=== PATIENT | female | born 2000 | race Caucasian/White ===

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

== ENCOUNTER 2020-03-25 20:22 | Emergency (ER) | payer BC, OTHER ==
[2020-03-25] MEDS ORDERED: Sodium Chloride 0.9% 10 ML Syringe FLUSH PRN (20:36)
[2020-03-25] MEDS ORDERED: Ondansetron 4 MG/2 ML SDV IVPUSH ONE ×2 (20:45→21:44)
[2020-03-25] MEDS ORDERED: Sodium Chloride 0.9% 1,000 ML IV STA (20:45)
[2020-03-25] MEDS ORDERED: Alum Hydrox/Mag Hydrox/Simeth 30 ML, Lidocaine 2% 15 ML PO ONE ×2 (20:46)
--- NOTE | 2020-03-25 20:52 | EDM.PDOC ---
ED HPI GENERAL MEDICAL PROBLEM - General Chief Complaint: Gastrointestinal Problem Stated Complaint: VOMITING Time Seen by Provider: 03/25/20 20:35 Source of Information: Reports: Patient, RN Notes Reviewed History Limitations: Reports: No Limitations - History of Present Illness INITIAL COMMENTS - FREE TEXT/NARRATIVE: Patient is a 19-year-old female presenting to the emergency department with complaints of epigastric pain. Symptoms started earlier this afternoon and have progressively worsened throughout the day. She had one episode of vomiting upon arrival to the emergency department. She is had no diarrhea, fever, or chills. Patient states that she ate Chinese toast eggs for breakfast and then pizza rolls and fries for lunch. The pain was present before she ate lunch and she did not notice much of a difference in the pain after eating. She denies any history of esophageal reflux or abdominal surgeries. Upper Abdomen Pain Score (Numeric/FACES): 9 - Related Data Allergies Allergy/AdvReac Type Severity Reaction Status Date / Time No Known Allergies Allergy Verified 04/19/17 08:25 Home Meds: Home Meds Fexofenadine [Thuy] 1 tab PO DAILY 04/19/17 [History] Escitalopram [Lexapro] 30 mg PO DAILY 03/25/20 [History] Melatonin 10 mg PO BEDTIME 03/25/20 [History] Omeprazole 20 mg PO DAILY #30 capsule.dr 03/25/20 [Rx] Ondansetron [Zofran ODT] 4 mg PO Q6H PRN #10 tab.dis 03/25/20 [Rx] Sucralfate 1 gm PO QIDACANDBED 10 Days #40 tablet 03/25/20 [Rx] Past Medical History HEENT History: Reports: Allergic Rhinitis Psychiatric History: Reports: Anxiety, Depression - Past Surgical History HEENT Surgical History: Reports: Oral Surgery Social & Family History - Tobacco Use Tobacco Use Status *Q: Never Tobacco User - Caffeine Use Caffeine Use: Reports: Coffee, Energy Drinks, Soda - Recreational Drug Use Recreational Drug Use: No - Living Situation & Occupation Living situation: Reports: with Family Occupation: Student (10th grade) ED ROS GENERAL - Review of Systems Review Of Systems: See Below Constitutional: Reports: No Symptoms. Denies: Fever, Chills HEENT: Reports: No Symptoms Respiratory: Reports: No Symptoms Cardiovascular: Reports: No Symptoms Endocrine: Reports: No Symptoms GI/Abdominal: Reports: Abdominal Pain, Nausea, Vomiting. Denies: Diarrhea : Reports: No Symptoms Musculoskeletal: Reports: No Symptoms Skin: Reports: No Symptoms Neurological: Reports: No Symptoms Psychiatric: Reports: No Symptoms Hematologic/Lymphatic: Reports: No Symptoms Immunologic: Reports: No Symptoms ED EXAM, GI/ABD - Physical Exam Exam: See Below Exam Limited By: No Limitations General Appearance: Alert, WD/WN, No Apparent Distress Respiratory/Chest: No Respiratory Distress, Lungs Clear, Normal Breath Sounds, No Accessory Muscle Use, Chest Non-Tender Cardiovascular: Normal Peripheral Pulses, Regular Rate, Rhythm, No Edema, No Gallop, No JVD, No Murmur, No Rub GI/Abdominal Exam: Normal Bowel Sounds, Soft, No Organomegaly, No Distention, No Abnormal Bruit, No Mass, Pelvis Stable, Other (Mild tenderness localized to the epigastrium. No tenderness of the right upper quadrant or left upper quadrant. Negative Gates sign.) Neurological: Alert, Oriented, CN II-XII Intact, Normal Cognition, Normal Gait, Normal Reflexes, No Motor/Sensory Deficits Psychiatric: Normal Affect, Normal Mood Skin Exam: Warm, Dry, Intact, Normal Color, No Rash Course - Vital Signs Last Recorded V/S: Last Vital Signs Temp 97.4 F 03/25/20 20:39 Pulse 78 03/25/20 20:39 Resp 20 03/25/20 20:39 BP 111/65 03/25/20 20:39 Pulse Ox 99 03/25/20 20:39 - Orders/Labs/Meds Orders: Active Orders 24 hr Category Date Time Status Peripheral IV Care [RC] . DIRECTED Care 03/25/20 20:36 Active Ondansetron [Zofran] Med 03/25/20 21:44 Once 4 mg IVPUSH ONETIME ONE Sodium Chloride 0.9% [Saline Flush] Med 03/25/20 20:36 Active 10 ml FLUSH ASDIRECTED PRN Peripheral IV Insertion Adult [OM.PC] Stat Oth 03/25/20 20:36 Ordered Medication Orders Sodium Chloride (Saline Flush) 10 ml FLUSH ASDIRECTED PRN PRN Reason: Keep Vein Open Last Admin: 03/25/20 21:02 Dose: 10 ml Documented by: [place] Labs: Laboratory Tests 03/25/20 03/25/20 03/25/20 Range/Units 20:55 20:55 20:55 WBC 12.22 H (3.98-10.04) K/mm3 RBC 4.89 (3.98-5.22) M/mm3 Hgb 13.9 (11.2-15.7) gm/dl Hct 41.1 (34.1-44.9) % MCV 84.0 (79.4-94.8) fl MCH 28.4 (25.6-32.2) pg MCHC 33.8 (32.2-35.5) g/dl RDW Std Deviation 41.8 (36.4-46.3) fL Plt Count 325 (182-369) K/mm3 MPV 8.5 L (9.4-12.3) fl Neut % (Auto) 73.0 H (34.0-71.1) % Lymph % (Auto) 17.8 L (19.3-51.7) % [place] % (Auto) 6.7 (4.7-12.5) % Eos % (Auto) 1.9 (0.7-5.8) Baso % (Auto) 0.4 (0.1-1.2) % Neut # (Auto) 8.93 H (1.56-6.13) K/mm3 Lymph # (Auto) 2.17 (1.18-3.74) K/mm3 [place] # (Auto) 0.82 H (0.24-0.36) K/mm3 Eos # (Auto) 0.23 (0.04-0.36) K/mm3 Baso # (Auto) 0.05 (0.01-0.08) K/mm3 Manual Slide Review Normal smear Sodium 143 (136-145) mEq/L Potassium 3.6 (3.5-5.1) mEq/L Chloride 104 (98-107) mEq/L Carbon Dioxide 25 (21-32) mEq/L Anion Gap 17.6 H (5-15) BUN 14 (7-18) mg/dL Creatinine 0.9 (0.55-1.02) mg/dL Est Cr Clr Drug Dosing 94.12 mL/min Estimated GFR (MDRD) > 60 (>60) mL/min BUN/Creatinine Ratio 15.6 (14-18) Glucose 107 H (74-106) mg/dL Calcium 9.1 (8.5-10.1) mg/dL Total Bilirubin 0.4 (0.2-1.0) mg/dL AST 17 (15-37) U/L ALT 38 (14-59) U/L Alkaline Phosphatase 68 (46-116) U/L C-Reactive Protein 0.2 (<1.0) mg/dL Total Protein 7.8 (6.4-8.2) g/dl Albumin 4.1 (3.4-5.0) g/dl Globulin 3.7 gm/dL Albumin/Globulin Ratio 1.1 (1-2) Lipase 64 L (73-393) U/L HCG, Qual Negative (NEGATIVE) Urine Color (Yellow) Urine Appearance (Clear) Urine pH (5.0-8.0) Ur Specific [place] (1.005-1.030) Urine Protein (Negative) Urine Glucose (UA) (Negative) Urine Ketones (Negative) Urine Occult Blood (Negative) Urine Nitrite (Negative) Urine Bilirubin (Negative) Urine Urobilinogen (0.2-1.0) Ur Leukocyte Esterase (Negative) Urine RBC (0-5) /hpf Urine WBC (0-5) /hpf Ur Squamous Epith Cells (0-5) /hpf Urine Bacteria (FEW) /hpf Urine Mucus (FEW) /hpf 03/25/20 Range/Units 21:00 WBC (3.98-10.04) K/mm3 RBC (3.98-5.22) M/mm3 Hgb (11.2-15.7) gm/dl Hct (34.1-44.9) % MCV (79.4-94.8) fl MCH (25.6-32.2) pg MCHC (32.2-35.5) g/dl RDW Std Deviation (36.4-46.3) fL Plt Count (182-369) K/mm3 MPV (9.4-12.3) fl Neut % (Auto) (34.0-71.1) % Lymph % (Auto) (19.3-51.7) % [place] % (Auto) (4.7-12.5) % Eos % (Auto) (0.7-5.8) Baso % (Auto) (0.1-1.2) % Neut # (Auto) (1.56-6.13) K/mm3 Lymph # (Auto) (1.18-3.74) K/mm3 [place] # (Auto) (0.24-0.36) K/mm3 Eos # (Auto) (0.04-0.36) K/mm3 Baso # (Auto) (0.01-0.08) K/mm3 Manual Slide Review Sodium (136-145) mEq/L Potassium (3.5-5.1) mEq/L Chloride (98-107) mEq/L Carbon Dioxide (21-32) mEq/L Anion Gap (5-15) BUN (7-18) mg/dL Creatinine (0.55-1.02) mg/dL Est Cr Clr Drug Dosing mL/min Estimated GFR (MDRD) (>60) mL/min BUN/Creatinine Ratio (14-18) Glucose (74-106) mg/dL Calcium (8.5-10.1) mg/dL Total Bilirubin (0.2-1.0) mg/dL AST (15-37) U/L ALT (14-59) U/L Alkaline Phosphatase (46-116) U/L C-Reactive Protein (<1.0) mg/dL Total Protein (6.4-8.2) g/dl Albumin (3.4-5.0) g/dl Globulin gm/dL Albumin/Globulin Ratio (1-2) Lipase (73-393) U/L HCG, Qual (NEGATIVE) Urine Color Yellow (Yellow) Urine Appearance Slt cloudy H (Clear) Urine pH 5.5 (5.0-8.0) Ur Specific [place] > or = 1.030 (1.005-1.030) Urine Protein Trace H (Negative) Urine Glucose (UA) Negative (Negative) Urine Ketones Negative (Negative) Urine Occult Blood Negative (Negative) Urine Nitrite Negative (Negative) Urine Bilirubin Negative (Negative) Urine Urobilinogen 0.2 (0.2-1.0) Ur Leukocyte Esterase Negative (Negative) Urine RBC 0-5 (0-5) /hpf Urine WBC 0-5 (0-5) /hpf Ur Squamous Epith Cells 0-5 (0-5) /hpf Urine Bacteria Few (FEW) /hpf Urine Mucus Moderate H (FEW) /hpf Meds: Medications Generic Name Dose Route Start Last Admin Trade Name Freq PRN Reason Stop Dose Admin Sodium Chloride 10 ml 03/25/20 20:36 03/25/20 21:02 Saline Flush FLUSH 10 ml ASDIRECTED PRN Administration Keep Vein Open Discontinued Medications Generic Name Dose Route Start Last Admin Trade Name Brendan PRN Reason Stop Dose Admin Al Hydroxide/Mg Hydroxide 30 0 ml 03/25/20 20:46 03/25/20 21:17 ml/ Lidocaine HCl 15 ml PO 03/25/20 20:47 45 ml ONETIME ONE Administration Famotidine 20 mg 03/25/20 21:19 03/25/20 21:24 Pepcid IVPUSH 03/25/20 21:20 20 mg ONETIME ONE Administration Hydromorphone HCl 0.5 mg 03/25/20 21:21 Dilaudid IVPUSH 03/25/20 21:22 ONETIME ONE Sodium Chloride 1,000 mls @ 999 mls/hr 03/25/20 20:45 03/25/20 21:01 Normal Saline IV 03/25/20 21:45 999 mls/hr NOW STA Administration Ondansetron HCl 4 mg 03/25/20 20:45 03/25/20 21:01 Zofran IVPUSH 03/25/20 20:46 4 mg ONETIME ONE Administration - Re-Assessments/Exams Free Text/Narrative Re-Assessment/Exam: Patient is a 19-year-old female presenting to the emergency department with complaints of epigastric pain throughout the day today. She had one episode of vomiting upon arrival to ER. Denies any diarrhea. On exam, she does have localized tenderness overlying the epigastrium. No right upper quadrant or left upper quadrant tenderness. She took Tylenol for the discomfort which she states did not help. Denies any history of esophageal reflux. I ordered CBC, CMP, CRP, lipase, urinalysis, serum hCG. We will give her 1 L bolus of normal saline as well as Zofran 4 mg IV. 15 minutes after Zofran was given, I have ordered for a GI cocktail to be administered. 03/25/20 21:29 Nurse staff reports that the patient vomitted after taking th GI cocktail. I have ordered Pepcid 20mg IV and Dilaudid 0.5 mg IV. 03/25/20 21:45 Patient is feeling better after the Pepcid but does still feel mildly nauseous. Discussed normal lab results and urinalysis. We will give her another dose of Zofran prior to discharge. I will send a prescription for omeprazole, Carafate, and Zofran. Discussed return precautions. Discharge instructions as documented. Departure - Departure Time of Disposition: 21:46 Disposition: Home, Self-Care 01 Condition: Good Clinical Impression: Vomiting Gastritis Qualifiers: Gastritis type: unspecified gastritis Chronicity: acute Gastritis bleeding: without bleeding Qualified Code(s): K29.00 - Acute gastritis without bleeding - Discharge Information *PRESCRIPTION DRUG MONITORING PROGRAM REVIEWED*: No *COPY OF PRESCRIPTION DRUG MONITORING REPORT IN PATIENT MALIK: No Prescriptions: Omeprazole 20 mg PO DAILY #30 capsule. Sucralfate 1 gm PO QIDACANDBED 10 Days #40 tablet Ondansetron [Zofran ODT] 4 mg PO Q6H PRN #10 tab.dis PRN Reason: Nausea/Vomiting Instructions: Nausea and Vomiting, Adult, [id number], Gastritis, Adult, [id number] Referrals: Cookie Butler PA-C [Primary Care Provider] - Forms: ED Department Discharge Additional Instructions: You were seen in the emergency department today for upper abdominal pain and vomiting. Work-up included blood work and urinalysis. Results of your work-up were found to be normal. As we discussed, given your lab and exam findings, you are likely suffering from gastritis which is inflammation within your stomach. While in the ER, you received IV fluids, Pepcid, and Zofran for nausea. A prescription for omeprazole, Carafate, and Zofran has been sent to [facility]. Take these medications as prescribed. Recommend clear liquid diet for the next 24 hours and then slowly advance as tolerated. Avoid greasy, spicy, or acidic foods for the next few days as this will likely aggravate your symptoms. If you should experience worsening symptoms, inability to keep medications down, or any other new symptoms of concern, recommend return to the emergency department. Follow-up with your primary care provider towards the end of this week. Sepsis Event Note (ED) - Evaluation Sepsis Screening Result: No Definite Risk - Focused Exam Vital Signs: Vital Signs Temp Pulse Resp BP Pulse Ox 03/25/20 20:39 97.4 F 78 20 111/65 99 - My Orders Last 24 Hours: My Active Orders 03/25/20 20:36 Peripheral IV Care [RC] . DIRECTED Sodium Chloride 0.9% [Saline Flush] 10 ml FLUSH ASDIRECTED PRN Peripheral IV Insertion Adult [OM.PC] Stat 03/25/20 21:44 Ondansetron [Zofran] 4 mg IVPUSH ONETIME ONE - Assessment/Plan Last 24 Hours: My Active Orders 03/25/20 20:36 Peripheral IV Care [RC] . DIRECTED Sodium Chloride 0.9% [Saline Flush] 10 ml FLUSH ASDIRECTED PRN Peripheral IV Insertion Adult [OM.PC] Stat 03/25/20 21:44 Ondansetron [Zofran] 4 mg IVPUSH ONETIME ONE
[2020-03-25] MEDS ORDERED: Famotidine 20 MG/2 ML SDV IVPUSH ONE (21:19)
[2020-03-25] MEDS ORDERED: HYDROmorphone 0.5 MG/0.5 ML Syringe IVPUSH ONE (21:21)
== END 2020-03-25 22:06 | disposition home or self-care (01) ==
LOC: SUPCPDRO 20:22 → JD.ED 20:22
DX: K29.00 Acute gastritis without bleeding (principal); R11.10 Vomiting, unspecified; Z79.899 Other long term (current) drug therapy
CPT/HCPCS: 36415; 80053; 81001; 83690; 84703; 85025; 86140; 96374; 96375; 96376; 99284; A9270; J2405; J3490; J7030

== ENCOUNTER 2020-05-22 17:36 | Inpatient (IN) | payer BC ==
[2020-05-22] MEDS ORDERED: Ondansetron 4 MG/2 ML SDV IVPUSH ONE (18:02)
[2020-05-22] MEDS ORDERED: Sodium Chloride 0.9% 1,000 ML IV STA (18:02)
[2020-05-22] MEDS ORDERED: HYDROmorphone 0.5 MG/0.5 ML Syringe IVPUSH ONE ×3 (18:02→22:36)
--- NOTE | 2020-05-22 18:11 | EDM.PDOC ---
ED HPI GENERAL MEDICAL PROBLEM - General Chief Complaint: Abdominal Pain Stated Complaint: ABDOMINAL PAIN Time Seen by Provider: 05/22/20 17:44 Source of Information: Reports: Patient, RN Notes Reviewed History Limitations: Reports: No Limitations - History of Present Illness INITIAL COMMENTS - FREE TEXT/NARRATIVE: Patient is a 19-year-old female presenting to the emergency department with complaints of severe right lower quadrant abdominal pain which began abruptly approximately 1-1/2 hours ago. She states that she was walking to the hardware store when the pain came on suddenly. She describes it as a sharp, stabbing pain. She has had no fever or chills. Does feel nauseous but denies any vomiting or diarrhea. Denies any history of ovarian cysts. She is due for her menstrual period at any time. Denies any possibility of . Middle Abdomen Pain Score (Numeric/FACES): 10 - Related Data Allergies Allergy/AdvReac Type Severity Reaction Status Date / Time No Known Allergies Allergy Verified 05/22/20 17:48 Home Meds: Home Meds Escitalopram [Lexapro] 20 mg PO DAILY 03/25/20 [History] Melatonin 10 mg PO BEDTIME 03/25/20 [History] Cetirizine HCl [Zyrtec] 10 mg PO DAILY 05/22/20 [History] Past Medical History HEENT History: Reports: Allergic Rhinitis Psychiatric History: Reports: Anxiety, Depression - Past Surgical History HEENT Surgical History: Reports: Oral Surgery Social & Family History - Family History Family Medical History: No Pertinent Family History - Tobacco Use Tobacco Use Status *Q: Never Tobacco User - Caffeine Use Caffeine Use: Reports: Energy Drinks - Recreational Drug Use Recreational Drug Use: No - Living Situation & Occupation Living situation: Reports: with Family Occupation: Student (10th grade) ED ROS GENERAL - Review of Systems Review Of Systems: Comprehensive ROS is negative, except as noted in HPI. ED EXAM, GI/ABD - Physical Exam Exam: See Below General Appearance: Alert, Anxious, Mild Distress Respiratory/Chest: No Respiratory Distress, Lungs Clear, Normal Breath Sounds, No Accessory Muscle Use, Chest Non-Tender Cardiovascular: Normal Peripheral Pulses, Regular Rate, Rhythm, No Edema, No Gallop, No JVD, No Murmur, No Rub GI/Abdominal Exam: Normal Bowel Sounds, Soft, No Organomegaly, No Distention, No Abnormal Bruit, No Mass, Pelvis Stable, Tender (RLQ) Neurological: Alert, Oriented, CN II-XII Intact, Normal Cognition, Normal Gait, Normal Reflexes, No Motor/Sensory Deficits Psychiatric: Normal Affect, Normal Mood Skin Exam: Warm, Dry, Intact, Normal Color, No Rash Course - Vital Signs Last Recorded V/S: Last Vital Signs Temp 98.3 F 05/22/20 17:46 Pulse 84 05/22/20 17:46 Resp 20 05/22/20 17:46 BP 105/55 L 05/22/20 17:46 Pulse Ox 98 05/22/20 17:46 - Orders/Labs/Meds Orders: Active Orders 24 hr Category Date Time Status Peripheral IV Care [RC] . DIRECTED Care 05/22/20 18:03 Active Abdomen Pelvis w Cont [CT] Stat Exams 05/22/20 20:50 Taken CORONAVIRUS COVID-19 KOREY [MOLEC] Stat Lab 05/22/20 22:23 Received Ertapenem [INVanz] 1 gm Med 05/22/20 22:18 Active Sodium Chloride 0.9% [Normal Saline] 50 ml IV ONETIME Sodium Chloride 0.9% [Normal Saline] 1,000 ml Med 05/22/20 18:02 Active IV NOW Sodium Chloride 0.9% [Saline Flush] Med 05/22/20 18:03 Active 10 ml FLUSH ASDIRECTED PRN Peripheral IV Insertion Adult [OM.PC] Stat Oth 05/22/20 18:03 Ordered Medication Orders Sodium Chloride (Normal Saline) 1,000 mls @ 150 mls/hr IV NOW STA Stop: 05/23/20 00:41 Last Admin: 05/22/20 18:32 Dose: 150 mls/hr Documented by: SHEELA Ertapenem 1 gm/ Sodium (Chloride) 50 mls @ 100 mls/hr IV ONETIME ONE Stop: 05/22/20 22:47 Last Admin: 05/22/20 22:35 Dose: 100 mls/hr Documented by: BIJAL Sodium Chloride (Sodium Chloride 0.9% 10 Ml Syringe) 10 ml FLUSH ASDIRECTED PRN PRN Reason: Keep Vein Open Last Admin: 05/22/20 21:55 Dose: 10 ml Documented by: Admin: 05/22/20 18:26 Dose: 10 ml Documented by: SHEELA Labs: Laboratory Tests 05/22/20 05/22/20 05/22/20 Range/Units 18:25 18:25 18:25 WBC 18.82 H (3.98-10.04) K/mm3 RBC 4.87 (3.98-5.22) M/mm3 Hgb 13.7 (11.2-15.7) gm/dl Hct 40.7 (34.1-44.9) % MCV 83.6 (79.4-94.8) fl MCH 28.1 (25.6-32.2) pg MCHC 33.7 (32.2-35.5) g/dl RDW Std Deviation 39.8 (36.4-46.3) fL Plt Count 353 (182-369) K/mm3 MPV 8.5 L (9.4-12.3) fl Neut % (Auto) 80.5 H (34.0-71.1) % Lymph % (Auto) 13.2 L (19.3-51.7) % [place] % (Auto) 4.1 L (4.7-12.5) % Eos % (Auto) 1.7 (0.7-5.8) Baso % (Auto) 0.2 (0.1-1.2) % Neut # (Auto) 15.16 H (1.56-6.13) K/mm3 Lymph # (Auto) 2.48 (1.18-3.74) K/mm3 [place] # (Auto) 0.78 H (0.24-0.36) K/mm3 Eos # (Auto) 0.32 (0.04-0.36) K/mm3 Baso # (Auto) 0.03 (0.01-0.08) K/mm3 Manual Slide Review Sodium 142 (136-145) mEq/L Potassium 3.5 (3.5-5.1) mEq/L Chloride 104 (98-107) mEq/L Carbon Dioxide 25 (21-32) mEq/L Anion Gap 16.5 H (5-15) BUN 15 (7-18) mg/dL Creatinine 0.9 (0.55-1.02) mg/dL Est Cr Clr Drug Dosing 94.12 mL/min Estimated GFR (MDRD) > 60 (>60) mL/min BUN/Creatinine Ratio 16.7 (14-18) Glucose 103 (74-106) mg/dL Calcium 9.0 (8.5-10.1) mg/dL Total Bilirubin 0.3 (0.2-1.0) mg/dL AST 17 (15-37) U/L ALT 30 (14-59) U/L Alkaline Phosphatase 67 (46-116) U/L C-Reactive Protein 0.3 (<1.0) mg/dL Total Protein 7.6 (6.4-8.2) g/dl Albumin 3.8 (3.4-5.0) g/dl Globulin 3.8 gm/dL Albumin/Globulin Ratio 1.0 (1-2) HCG, Qual Negative (NEGATIVE) Meds: Medications Generic Name Dose Route Start Last Admin Trade Name Brendan PRN Reason Stop Dose Admin Sodium Chloride 1,000 mls @ 150 mls/hr 05/22/20 18:02 05/22/20 18:32 Normal Saline IV 05/23/20 00:41 150 mls/hr NOW STA Administration Ertapenem 1 gm/ Sodium 50 mls @ 100 mls/hr 05/22/20 22:18 05/22/20 22:35 Chloride IV 05/22/20 22:47 100 mls/hr ONETIME ONE Administration Sodium Chloride 10 ml 05/22/20 18:03 05/22/20 21:55 Sodium Chloride 0.9% 10 Ml Syringe FLUSH 10 ml ASDIRECTED PRN Administration Keep Vein Open Discontinued Medications Generic Name Dose Route Start Last Admin Trade Name Brendan PRN Reason Stop Dose Admin Hydromorphone HCl 0.5 mg 05/22/20 18:02 05/22/20 18:30 Hydromorphone 0.5 Mg/0.5 Ml Syringe IVPUSH 05/22/20 18:03 0.5 mg ONETIME ONE Administration Hydromorphone HCl 0.5 mg 05/22/20 21:09 05/22/20 21:14 Hydromorphone 0.5 Mg/0.5 Ml Syringe IVPUSH 05/22/20 21:10 0.5 mg ONETIME ONE Administration Hydromorphone HCl 0.5 mg 05/22/20 22:36 05/22/20 22:40 Hydromorphone 0.5 Mg/0.5 Ml Syringe IVPUSH 05/22/20 22:37 0.5 mg ONETIME ONE Administration Iopamidol 100 ml 05/22/20 21:55 05/22/20 21:55 Iopamidol 612 Mg/Ml 100 Ml Bottle IVPUSH 05/22/20 21:56 100 ml ONETIME ONE Administration Ondansetron HCl 4 mg 05/22/20 18:02 05/22/20 18:26 Ondansetron 4 Mg/2 Ml Sdv IVPUSH 05/22/20 18:03 4 mg ONETIME ONE Administration - Re-Assessments/Exams Free Text/Narrative Re-Assessment/Exam: Patient is a 19-year-old female presenting to the emergency department with complaints of acute onset of sharp, stabbing, right lower quadrant abdominal pain. She has had nausea with no vomiting or diarrhea. Denies fever chills. On exam, she does exquisitely tender in the right lower quadrant. Given the abruptness of the onset of pain as well as her description of the sharp, stabbing pain, I feel is likely she is suffering from a ruptured ovarian cyst. I have ordered blood work to include CBC, CMP, CRP, and qualitative hCG. We will give her Dilaudid 0.5 mg IV as well as Zofran 4 mg IV. I have ordered a pelvic ultrasound. 05/22/20 20:00 master control technician reported the patient was unable to tolerate transvaginal ultrasound. They did attempt to visualize the organs transabdominally. I will wait for the radiologist report. If adequate imaging was not obtained, I will complete a CT scan of the abdomen and pelvic. 05/22/202049 Results of the transabdominal pelvic ultrasound shows: 1. Uterus and ovaries are not seen. 2. Cystic structure as described above seen within the left adnexa. I have ordered a CT scan of the abdomen pelvis with IV contrast only. 05/22/20 22:16 CT scan of the abdomen pelvis impression as follows: 1. Distended appendix measuring 1 cm with mucosal hyperemia, concerning for mild acute appendicitis in the appropriate clinical setting. 2. 6 cm x 5.4 cm left adnexal cyst. Further evaluation with ultrasound is recommended. 3. Incidental findings as detailed above. Case discussed with the general surgeon on-call, Dr. Gavin. He would like the patient admitted into the hospital. He recommended to give her 1 g of Invanz, LR at 100 mils per hour, Dilaudid 0.5 mg IV every 2 hours, Zofran 4 mg IV every 6 as needed for nausea and NPO. I will write bridge orders. Departure - Departure Time of Disposition: 22:21 Disposition: Refer to Observation Condition: Good Clinical Impression: Appendicitis Qualifiers: Appendicitis type: acute appendicitis Acute appendicitis type: unspecified acute appendicitis type Qualified Code(s): K35.80 - Unspecified acute appendicitis - Discharge Information Sepsis Event Note (ED) - Evaluation Sepsis Screening Result: No Definite Risk - Focused Exam Vital Signs: Vital Signs Temp Pulse Resp BP Pulse Ox 05/22/20 17:46 98.3 F 84 20 105/55 L 98 - My Orders Last 24 Hours: My Active Orders 05/22/20 18:02 Sodium Chloride 0.9% [Normal Saline] 1,000 ml IV NOW 05/22/20 18:03 Peripheral IV Care [RC] . DIRECTED Sodium Chloride 0.9% [Saline Flush] 10 ml FLUSH ASDIRECTED PRN Peripheral IV Insertion Adult [OM.PC] Stat 05/22/20 20:50 Abdomen Pelvis w Cont [CT] Stat 05/22/20 22:18 Ertapenem [INVanz] 1 gm Sodium Chloride 0.9% [Normal Saline] 50 ml IV ONETIME 05/22/20 22:23 CORONAVIRUS COVID-19 KOREY [MOLEC] Stat - Assessment/Plan Last 24 Hours: My Active Orders 05/22/20 18:02 Sodium Chloride 0.9% [Normal Saline] 1,000 ml IV NOW 05/22/20 18:03 Peripheral IV Care [RC] . DIRECTED Sodium Chloride 0.9% [Saline Flush] 10 ml FLUSH ASDIRECTED PRN Peripheral IV Insertion Adult [OM.PC] Stat 05/22/20 20:50 Abdomen Pelvis w Cont [CT] Stat 05/22/20 22:18 Ertapenem [INVanz] 1 gm Sodium Chloride 0.9% [Normal Saline] 50 ml IV ONETIME 05/22/20 22:23 CORONAVIRUS COVID-19 KOREY [MOLEC] Stat
[2020-05-22] MEDS: Sodium Chloride 0.9% 10 ML Syringe FLUSH PRN ×2 (18:26→21:55)
--- NOTE | 2020-05-22 20:39 | US ---
Pelvic ultrasound: Multiple real-time images were attempted transvaginally but due to patient discomfort transabdominal scanning was performed. Uterus as well as ovaries are not seen. There is a cystic structure within the left adnexa measuring 4.4 x 4.6 x 5.3 cm. No free fluid is seen. Impression: 1. Uterus and ovaries are not seen. 2. Cystic structure as described above seen within the left adnexa. Diagnostic code #3
[2020-05-22] MEDS ORDERED: Iopamidol 612 MG/ML 100 ML Bottle IVPUSH ONE (21:55)
[2020-05-22] MEDS ORDERED: Ertapenem 1 GM in Sodium Chloride 0.9% 50 ML IV ONE (22:18)
[2020-05-22] MEDS ORDERED: Ondansetron 4 MG/2 ML SDV IVPUSH PRN (23:46)
[2020-05-23] MEDS: Lactated Ringers 1,000 ML IV SCH ×2 (00:01→10:15)
[2020-05-23] MEDS: HYDROmorphone 0.5 MG/0.5 ML Syringe IVPUSH PRN ×4 (02:17→12:24)
--- NOTE | 2020-05-23 08:31 | CT ---
CT abdomen and pelvis Technique: Multiple axial sections were obtained from above the dome of the diaphragm inferiorly through the pubic symphysis. Intravenous contrast was utilized. No oral contrast has been given. Reconstructed coronal and sagittal images were obtained. Delayed images were also obtained through the bladder. Comparison: Previous limited pelvic ultrasound study performed earlier on the same day (7:41 PM). Findings: Appendix measures somewhat prominent at 1 cm. There is slight enhancement of the wall of the appendix. No significant inflammatory change is seen. Difficult to exclude very early appendicitis depending on the patient's symptoms. Visualized lung bases show nothing acute. Liver shows no focal parenchymal abnormality. Spleen shows no focal abnormality. Adrenal glands show no nodule. Pancreas is within normal limits. Gallbladder contains no calcified gallstones. Kidneys show symmetric contrast enhancement with no hydronephrosis or discrete mass. Abdominal aorta shows no aneurysm. No retroperitoneal adenopathy or mesenteric abnormalities are seen. Left ovarian cyst is seen measuring about 6.0 cm in size. There is free fluid being seen within the pelvis. Right ovary appears normal. Increased stool is noted within the cecum. No bowel wall thickening is otherwise seen. Bone window settings were reviewed which appear within normal limits for the patient's age. Delayed images show contrast within the distal ureters and within the bladder. Impression: 1. Appendix is slightly prominent in size with mild enhancement of the appendiceal wall. No significant surrounding inflammatory change is seen. Difficult to exclude very early appendicitis if patient has correlating symptoms. 2. 6.0 cm cyst within the left ovary. Fluid within the pelvis most likely representing cyst leakage. Diagnostic code #3 I agree with preliminary report from [facility], finalized on 05/22/20, 11:08 PM CDT
--- NOTE | 2020-05-23 10:31 | PCM.PREANE ---
Preanesthetic Assessment - Procedure Proposed Procedure: lap appy - Anesthesia/Transfusion/Family Hx Anesthesia History: No Prior Anesthesia Family History of Anesthesia Reaction: No Transfusion History: No Prior Transfusion(s) - Review of Systems General: Fever (mn) Pulmonary: No Symptoms Cardiovascular: No Symptoms Gastrointestinal: Abdominal Pain (started yesterday at 330 pm- nausea with and no vomit) Neurological: No Symptoms Other: Reports: Depression, Anxiety - Physical Assessment NPO Status Date: 05/22/20 NPO Status Time: 04:30 (ice chips) Vital Signs: Last Vital Signs Temp 98.8 F 05/23/20 07:36 Pulse 114 H 05/23/20 08:27 Resp 16 05/23/20 07:36 BP 99/36 L 05/23/20 07:36 Pulse Ox 95 05/23/20 08:27 Height: 5 ft 6 in Weight: 68.266 kg ASA Class: 2 Mental Status: Alert & Oriented x3 Airway Class: Mallampati = 1 Dentition: Reports: Normal Dentition Thyro-Mental Finger Breadths: 3 Mouth Opening Finger Breadths: 3 ROM/Head Extension: Full Lungs: Clear to Auscultation, Normal Respiratory Effort Cardiovascular: Regular Rate, Regular Rhythm - Lab Values: Laboratory Last Values WBC 18.82 K/mm3 (3.98-10.04) H 05/22/20 18:25 RBC 4.87 M/mm3 (3.98-5.22) 05/22/20 18:25 Hgb 13.7 gm/dl (11.2-15.7) 05/22/20 18:25 Hct 40.7 % (34.1-44.9) 05/22/20 18:25 MCV 83.6 fl (79.4-94.8) 05/22/20 18:25 MCH 28.1 pg (25.6-32.2) 05/22/20 18:25 MCHC 33.7 g/dl (32.2-35.5) 05/22/20 18:25 RDW Std Deviation 39.8 fL (36.4-46.3) 05/22/20 18:25 Plt Count 353 K/mm3 (182-369) 05/22/20 18:25 MPV 8.5 fl (9.4-12.3) L 05/22/20 18:25 Neut % (Auto) 80.5 % (34.0-71.1) H 05/22/20 18:25 Lymph % (Auto) 13.2 % (19.3-51.7) L 05/22/20 18:25 [place] % (Auto) 4.1 % (4.7-12.5) L 05/22/20 18:25 Eos % (Auto) 1.7 (0.7-5.8) 05/22/20 18:25 Baso % (Auto) 0.2 % (0.1-1.2) 05/22/20 18:25 Neut # (Auto) 15.16 K/mm3 (1.56-6.13) H 05/22/20 18:25 Lymph # (Auto) 2.48 K/mm3 (1.18-3.74) 05/22/20 18:25 [place] # (Auto) 0.78 K/mm3 (0.24-0.36) H 05/22/20 18:25 Eos # (Auto) 0.32 K/mm3 (0.04-0.36) 05/22/20 18:25 Baso # (Auto) 0.03 K/mm3 (0.01-0.08) 05/22/20 18:25 Manual Slide Review 05/22/20 18:25 Sodium 142 mEq/L (136-145) 05/22/20 18:25 Potassium 3.5 mEq/L (3.5-5.1) 05/22/20 18:25 Chloride 104 mEq/L (98-107) 05/22/20 18:25 Carbon Dioxide 25 mEq/L (21-32) 05/22/20 18:25 Anion Gap 16.5 (5-15) H 05/22/20 18:25 BUN 15 mg/dL (7-18) 05/22/20 18:25 Creatinine 0.9 mg/dL (0.55-1.02) 05/22/20 18:25 Est Cr Clr Drug Dosing 94.12 mL/min 05/22/20 18:25 Estimated GFR (MDRD) > 60 mL/min (>60) 05/22/20 18:25 BUN/Creatinine Ratio 16.7 (14-18) 05/22/20 18:25 Glucose 103 mg/dL (74-106) 05/22/20 18:25 Calcium 9.0 mg/dL (8.5-10.1) 05/22/20 18:25 Total Bilirubin 0.3 mg/dL (0.2-1.0) 05/22/20 18:25 AST 17 U/L (15-37) 05/22/20 18:25 ALT 30 U/L (14-59) 05/22/20 18:25 Alkaline Phosphatase 67 U/L (46-116) 05/22/20 18:25 C-Reactive Protein 0.3 mg/dL (<1.0) 05/22/20 18:25 Total Protein 7.6 g/dl (6.4-8.2) 05/22/20 18:25 Albumin 3.8 g/dl (3.4-5.0) 05/22/20 18:25 Globulin 3.8 gm/dL 05/22/20 18:25 Albumin/Globulin Ratio 1.0 (1-2) 05/22/20 18:25 HCG, Qual Negative (NEGATIVE) 05/22/20 18:25 SARS-CoV-2 RNA (KOREY) Negative (NEGATIVE) 05/22/20 22:23 - Allergies Allergies/Adverse Reactions: Allergies Allergy/AdvReac Type Severity Reaction Status Date / Time No Known Allergies Allergy Verified 05/22/20 17:48 - Blood Blood Available: No - Acknowledgements Anesthesia Type Planned: General Anesthesia Pt an Appropriate Candidate for the Planned Anesthesia: Yes Alternatives and Risks of Anesthesia Discussed w Pt/Guardian: Yes Pt/Guardian Understands and Agrees with Anesthesia Plan: Yes PreAnesthesia Questionnaire HEENT History: Reports: Allergic Rhinitis Cardiovascular History: Reports: None Respiratory History: Reports: None Musculoskeletal History: Reports: None Psychiatric History: Reports: Anxiety, Depression Endocrine/Metabolic History: Reports: None Oncologic (Cancer) History: Reports: None - Past Surgical History HEENT Surgical History: Reports: Oral Surgery, Other (See Below) Other HEENT Surgeries/Procedures: [place] teeth removed 03/27 - SUBSTANCE USE Tobacco Use Status *Q: Never Tobacco User Tobacco Use Within Last Twelve Months: No Second Hand Smoke Exposure: No Days Per Week of Alcohol Use: 0 Recreational Drug Use History: No - HOME MEDS Home Medications: Home Meds Escitalopram [Lexapro] 20 mg PO BEDTIME 03/25/20 [History] Melatonin 10 mg PO BEDTIME 03/25/20 [History] Cetirizine HCl [Zyrtec] 10 mg PO BEDTIME 05/22/20 [History] - CURRENT (IN HOUSE) MEDS Current Meds: Current Medications Hydromorphone HCl (Hydromorphone 0.5 Mg/0.5 Ml Syringe) 0.5 mg IVPUSH Q2H PRN PRN Reason: Pain Last Admin: 05/23/20 07:45 Dose: 0.5 mg Documented by: Lactated Ringer's (Ringers, Lactated) 1,000 mls @ 100 mls/hr IV ASDIRECTED WERNER Last Admin: 05/23/20 10:15 Dose: 100 mls/hr Documented by: Ondansetron HCl (Ondansetron 4 Mg/2 Ml Sdv) 4 mg IVPUSH Q6H PRN PRN Reason: Nausea Last Admin: 05/23/20 04:34 Dose: 4 mg Documented by: Sodium Chloride (Sodium Chloride 0.9% 10 Ml Syringe) 10 ml FLUSH ASDIRECTED PRN PRN Reason: Keep Vein Open Last Admin: 05/22/20 21:55 Dose: 10 ml Documented by: Discontinued Medications Hydromorphone HCl (Hydromorphone 0.5 Mg/0.5 Ml Syringe) 0.5 mg IVPUSH ONETIME ONE Stop: 05/22/20 18:03 Last Admin: 05/22/20 18:30 Dose: 0.5 mg Documented by: Hydromorphone HCl (Hydromorphone 0.5 Mg/0.5 Ml Syringe) 0.5 mg IVPUSH ONETIME ONE Stop: 05/22/20 21:10 Last Admin: 05/22/20 21:14 Dose: 0.5 mg Documented by: Hydromorphone HCl (Hydromorphone 0.5 Mg/0.5 Ml Syringe) 0.5 mg IVPUSH ONETIME ONE Stop: 05/22/20 22:37 Last Admin: 05/22/20 22:40 Dose: 0.5 mg Documented by: Sodium Chloride (Normal Saline) 1,000 mls @ 150 mls/hr IV NOW STA Stop: 05/23/20 00:41 Last Admin: 05/22/20 18:32 Dose: 150 mls/hr Documented by: Ertapenem 1 gm/ Sodium (Chloride) 50 mls @ 100 mls/hr IV ONETIME ONE Stop: 05/22/20 22:47 Last Admin: 05/22/20 22:35 Dose: 100 mls/hr Documented by: Iopamidol (Iopamidol 612 Mg/Ml 100 Ml Bottle) 100 ml IVPUSH ONETIME ONE Stop: 05/22/20 21:56 Last Admin: 05/22/20 21:55 Dose: 100 ml Documented by: Ondansetron HCl (Ondansetron 4 Mg/2 Ml Sdv) 4 mg IVPUSH ONETIME ONE Stop: 05/22/20 18:03 Last Admin: 05/22/20 18:26 Dose: 4 mg Documented by:
[2020-05-23] MEDS ORDERED: Propofol 200 MG/20 ML SDV ONE (11:31)
[2020-05-23] MEDS ORDERED: Midazolam 1 MG/ML 2 ML SDV ONE (11:32)
[2020-05-23] MEDS ORDERED: Lidocaine 1% 4 ML ONE (11:32)
[2020-05-23] MEDS ORDERED: Succinylcholine/Sod PF 100 MG/5 ML SYRINGE IV ONE (11:32)
[2020-05-23] MEDS ORDERED: fentaNYL 250 MCG/5 ML SDV ONE (11:32)
[2020-05-23] MEDS ORDERED: Rocuronium 50 MG/5 ML Vial ONE (11:33)
[2020-05-23] MEDS ORDERED: Bupivacaine 0.5%/EPINEPHrine 1:200,000 50 ML MDV ONE (11:40)
--- NOTE | 2020-05-23 12:28 | PCM.HP.2 ---
H&P History of Present Illness - General Date of Service: 05/23/20 Admit Problem/Dx: Admission Diagnosis/Problem Admission Diagnosis/Problem Appendicitis Source of Information: Patient History Limitations: Reports: No Limitations - History of Present Illness Initial Comments - Free Text/Narative: Patient reports that she was walking around in the store and suddenly developed acute onset of lower abdominal pain. She had nausea and vomiting. Pain is mostly on the right side. She presented to the ED. Where WBC was 18. CT a/p was done and revealed enlarged and enhancing appendix, large left sided pelvic cyst and some fluid in the pelvis. Pain was mostly located in thr RLQ but also present in the LLQ. I was called and was concerned for acute appendicitis. On my evaluatio n, the patient has lower abdominal pain bilaterally, both the left and right with Right>> left. rest of history is as above. Onset of Symptoms: Reports: Sudden Duration of Symptoms: Reports: Day(s): (1) Location: Reports: Abdomen (lower) Quality: Reports: Sharp, Stabbing Severity: Severe Improves with: Reports: Immobilization Worsens with: Reports: Movement Associated Symptoms: Reports: Nausea/Vomiting Middle Abdomen Pain Score (Numeric/FACES): 10 - Related Data Allergies/Adverse Reactions: Allergies Allergy/AdvReac Type Severity Reaction Status Date / Time No Known Allergies Allergy Verified 05/22/20 17:48 Home Medications: Home Meds Escitalopram [Lexapro] 20 mg PO BEDTIME 03/25/20 [History] Melatonin 10 mg PO BEDTIME 03/25/20 [History] Cetirizine HCl [Zyrtec] 10 mg PO BEDTIME 05/22/20 [History] Past Medical History HEENT History: Reports: Allergic Rhinitis Cardiovascular History: Reports: None Respiratory History: Reports: None Musculoskeletal History: Reports: None Psychiatric History: Reports: Anxiety, Depression Endocrine/Metabolic History: Reports: None Oncologic (Cancer) History: Reports: None - Past Surgical History HEENT Surgical History: Reports: Oral Surgery, Other (See Below) Other HEENT Surgeries/Procedures: [place] teeth removed 03/27 Social & Family History - Family History Family Medical History: No Pertinent Family History - Tobacco Use Tobacco Use Status *Q: Never Tobacco User Second Hand Smoke Exposure: No - Caffeine Use Caffeine Use: Reports: None - Alcohol Use Days Per Week of Alcohol Use: 0 - Recreational Drug Use Recreational Drug Use: No - Living Situation & Occupation Living situation: Reports: with Family Occupation: Student (10th grade) H&P Review of Systems - Review of Systems: Review Of Systems: See Below General: Reports: No Symptoms HEENT: Reports: No Symptoms Pulmonary: Reports: No Symptoms Cardiovascular: Reports: No Symptoms Gastrointestinal: Reports: Abdominal Pain, Anorexia, Vomiting Genitourinary: Reports: No Symptoms Musculoskeletal: Reports: No Symptoms Skin: Reports: No Symptoms Exam - Exam Exam: See Below - Vital Signs Vital Signs: Last Vital Signs Temp 98.8 F 05/23/20 11:38 Pulse 107 H 05/23/20 11:38 Resp 16 05/23/20 11:38 BP 106/49 L 05/23/20 11:38 Pulse Ox 100 05/23/20 11:38 Weight: 68.266 kg - Exam General: Alert, Oriented, Cooperative Lungs: Clear to Auscultation, Normal Respiratory Effort Cardiovascular: Regular Rate, Regular Rhythm, Normal S1, Normal S2 GI/Abdominal Exam: Soft, No Distention, Pelvis Stable, Tender (RLQ>LLQ,suprapubic) - Patient Data Lab Results Last 24 hrs: Laboratory Results - last 24 hr 05/22/20 05/22/20 05/22/20 Range/Units 18:25 18:25 18:25 WBC 18.82 H (3.98-10.04) K/mm3 RBC 4.87 (3.98-5.22) M/mm3 Hgb 13.7 (11.2-15.7) gm/dl Hct 40.7 (34.1-44.9) % MCV 83.6 (79.4-94.8) fl MCH 28.1 (25.6-32.2) pg MCHC 33.7 (32.2-35.5) g/dl RDW Std Deviation 39.8 (36.4-46.3) fL Plt Count 353 (182-369) K/mm3 MPV 8.5 L (9.4-12.3) fl Neut % (Auto) 80.5 H (34.0-71.1) % Lymph % (Auto) 13.2 L (19.3-51.7) % Lucas % (Auto) 4.1 L (4.7-12.5) % Eos % (Auto) 1.7 (0.7-5.8) Baso % (Auto) 0.2 (0.1-1.2) % Neut # (Auto) 15.16 H (1.56-6.13) K/mm3 Lymph # (Auto) 2.48 (1.18-3.74) K/mm3 Lucas # (Auto) 0.78 H (0.24-0.36) K/mm3 Eos # (Auto) 0.32 (0.04-0.36) K/mm3 Baso # (Auto) 0.03 (0.01-0.08) K/mm3 Manual Slide Review Sodium 142 (136-145) mEq/L Potassium 3.5 (3.5-5.1) mEq/L Chloride 104 (98-107) mEq/L Carbon Dioxide 25 (21-32) mEq/L Anion Gap 16.5 H (5-15) BUN 15 (7-18) mg/dL Creatinine 0.9 (0.55-1.02) mg/dL Est Cr Clr Drug Dosing 94.12 mL/min Estimated GFR (MDRD) > 60 (>60) mL/min BUN/Creatinine Ratio 16.7 (14-18) Glucose 103 (74-106) mg/dL Calcium 9.0 (8.5-10.1) mg/dL Total Bilirubin 0.3 (0.2-1.0) mg/dL AST 17 (15-37) U/L ALT 30 (14-59) U/L Alkaline Phosphatase 67 (46-116) U/L C-Reactive Protein 0.3 (<1.0) mg/dL Total Protein 7.6 (6.4-8.2) g/dl Albumin 3.8 (3.4-5.0) g/dl Globulin 3.8 gm/dL Albumin/Globulin Ratio 1.0 (1-2) HCG, Qual Negative (NEGATIVE) SARS-CoV-2 RNA (KOREY) (NEGATIVE) 05/22/20 Range/Units 22:23 WBC (3.98-10.04) K/mm3 RBC (3.98-5.22) M/mm3 Hgb (11.2-15.7) gm/dl Hct (34.1-44.9) % MCV (79.4-94.8) fl MCH (25.6-32.2) pg MCHC (32.2-35.5) g/dl RDW Std Deviation (36.4-46.3) fL Plt Count (182-369) K/mm3 MPV (9.4-12.3) fl Neut % (Auto) (34.0-71.1) % Lymph % (Auto) (19.3-51.7) % Lucas % (Auto) (4.7-12.5) % Eos % (Auto) (0.7-5.8) Baso % (Auto) (0.1-1.2) % Neut # (Auto) (1.56-6.13) K/mm3 Lymph # (Auto) (1.18-3.74) K/mm3 Lucas # (Auto) (0.24-0.36) K/mm3 Eos # (Auto) (0.04-0.36) K/mm3 Baso # (Auto) (0.01-0.08) K/mm3 Manual Slide Review Sodium (136-145) mEq/L Potassium (3.5-5.1) mEq/L Chloride (98-107) mEq/L Carbon Dioxide (21-32) mEq/L Anion Gap (5-15) BUN (7-18) mg/dL Creatinine (0.55-1.02) mg/dL Est Cr Clr Drug Dosing mL/min Estimated GFR (MDRD) (>60) mL/min BUN/Creatinine Ratio (14-18) Glucose (74-106) mg/dL Calcium (8.5-10.1) mg/dL Total Bilirubin (0.2-1.0) mg/dL AST (15-37) U/L ALT (14-59) U/L Alkaline Phosphatase (46-116) U/L C-Reactive Protein (<1.0) mg/dL Total Protein (6.4-8.2) g/dl Albumin (3.4-5.0) g/dl Globulin gm/dL Albumin/Globulin Ratio (1-2) HCG, Qual (NEGATIVE) SARS-CoV-2 RNA (KOREY) Negative (NEGATIVE) Result Diagrams: 05/22/20 18:25 05/22/20 18:25 Sepsis Event Note - Evaluation Sepsis Screening Result: No Definite Risk - Focused Exam Vital Signs: Vital Signs Temp Temp Pulse Resp BP Pulse Ox 05/23/20 11:38 98.8 F 107 H 16 106/49 L 100 05/23/20 08:27 114 H 95 05/23/20 07:36 98.8 F 16 99/36 L 05/23/20 04:20 99.7 F 107 H 20 104/47 L 99 05/23/20 02:02 98.2 F 115 H 100 05/23/20 00:55 100.1 F 05/23/20 00:51 100.4 F 99 16 99 Problem List Initiated/Reviewed/Updated: No Orders Last 24hrs: Active Orders 24 hr Category Date Time Status Admission Status [Patient Status] [ADT] Routine ADT 05/22/20 22:37 Active Activity as Tolerated [RC] BID Care 05/22/20 23:45 Active NPO Now [Nothing per Oral Now Diet] [DIET] Diet 05/23/20 Breakfast Active HYDROmorphone [Dilaudid] Med 05/22/20 23:45 Active 0.5 mg IVPUSH Q2H PRN Lactated Ringers [Ringers, Lactated] 1,000 ml Med 05/22/20 23:45 Active IV ASDIRECTED Ondansetron [Zofran] Med 05/22/20 23:46 Active 4 mg IVPUSH Q6H PRN Sodium Chloride 0.9% [Saline Flush] Med 05/22/20 18:03 Active 10 ml FLUSH ASDIRECTED PRN Peripheral IV Insertion Adult [OM.PC] Stat Oth 05/22/20 18:03 Ordered Schedule Procedure [COMM] Routine Oth 05/23/20 09:51 Ordered Code Status [Resuscitation Status] Routine Resus Stat 05/22/20 23:52 Ordered Medication Orders Hydromorphone HCl (Hydromorphone 0.5 Mg/0.5 Ml Syringe) 0.5 mg IVPUSH Q2H PRN PRN Reason: Pain Last Admin: 05/23/20 07:45 Dose: 0.5 mg Documented by: Admin: 05/23/20 04:26 Dose: 0.5 mg Documented by: Admin: 05/23/20 02:17 Dose: 0.5 mg Documented by: MILAGRO Lactated Ringer's (Ringers, Lactated) 1,000 mls @ 100 mls/hr IV ASDIRECTED WERNER Last Admin: 05/23/20 10:15 Dose: 100 mls/hr Documented by: Infusion: 05/23/20 10:01 Dose: 100 mls/hr Documented by: Admin: 05/23/20 00:01 Dose: 100 mls/hr Documented by: MILAGRO Ondansetron HCl (Ondansetron 4 Mg/2 Ml Sdv) 4 mg IVPUSH Q6H PRN PRN Reason: Nausea Last Admin: 05/23/20 04:34 Dose: 4 mg Documented by: MILAGRO Sodium Chloride (Sodium Chloride 0.9% 10 Ml Syringe) 10 ml FLUSH ASDIRECTED PRN PRN Reason: Keep Vein Open Last Admin: 05/22/20 21:55 Dose: 10 ml Documented by: Admin: 05/22/20 18:26 Dose: 10 ml Documented by: SHEELA Assessment/Plan Comment:: Patient has sudden acute onset abdominal pain, pelvic fluid and large left ovarian cyst. APpendix is enlarged and enhancing on CT a/p but I am concerned for ovarian cyst rupture as well. I will consult with BIOLOGY SPECIALIST physician about this possibility before proceeding with lap appendectomy. I discussed with the patient options for acute appendicitis including antibiotics vs surgery. Risks, benefits were discussed. Patient wanted to proceed with laparoscopic appendectomy. informed consent was obtained. We will get BIOLOGY SPECIALIST opinion then make the final decision to proceed or not. - Mortality Measure Prognosis:: Good
[2020-05-23] MEDS ORDERED: cefOXitin 2 GM in Premix Bag 1 BAG IV ONE (12:56)
[2020-05-23] MEDS ORDERED: Lactated Ringers 1,000 ML ONE (13:23)
[2020-05-23] MEDS ORDERED: HYDROmorphone 0.5 MG/0.5 ML Syringe ONE (13:32)
[2020-05-23] MEDS ORDERED: Ondansetron 4 MG/2 ML SDV ONE (14:27)
[2020-05-23] MEDS ORDERED: Ondansetron 4 MG/2 ML SDV IVPUSH PRN (14:49)
[2020-05-23] MEDS ORDERED: Docusate Sodium 100 MG Cap PO PRN (14:49)
[2020-05-23] MEDS ORDERED: Acetaminophen/HYDROcodone 325-5 MG Tab PO PRN (14:49)
[2020-05-23] MEDS ORDERED: HYDROmorphone 0.5 MG/0.5 ML Syringe IVPUSH PRN ×2 (14:49→15:12)
--- NOTE | 2020-05-23 15:07 | PCM.CONS ---
H&P History of Present Illness - General Date of Service: 05/23/20 (1245 hrs) Admit Problem/Dx: Admission Diagnosis/Problem Admission Diagnosis/Problem Appendicitis Source of Information: Patient (and mother) History Limitations: Reports: No Limitations - History of Present Illness Initial Comments - Free Text/Narative: 19-year-old 0 para 0-0-0-0 seen in consultation at request of Dr. Naya Gavin because of patient's having onset of acute abdominal pain while walking around in [facility] yesterday 05/22/2020. Patient states she has had no pain prior to this. Has had nausea and vomitted this morning. CT scan of the abdomen x1 patient was seen in the ER revealed what appeared to be possible ovarian cyst on the patient's left side. Because of the abdominal pain the patient was experiencing examination under anesthesia was deferred until in the operating room. The abdomen was tender bowel sounds present but hypoactive mild rebound or referred pain both left and right lower quadrant. Pelvic examination under anesthesia revealed normal size adnexal on the right side and no abnormality pelvis on the left side with normal-appearing ovary palpated. Impression acute abdominal pain R10.31 Left and right lower quadrant Ovarian cyst N83.10 Dr. Gavin and talked with the patient and her mother and discussed the alternatives of therapy and options available and agreement was obtained to proceed with laparoscopy possible appendectomy possible removal of a tube and ovary. See operative report. (tube and ovary were not removed) Onset of Symptoms: Reports: Sudden (Yesterday while walking in [facility] sudden onset acute lower abdominal pain) Symptom Onset Date: 05/22/20 Duration of Symptoms: Reports: Hour(s): Location: Reports: Abdomen (Bilasteral lower abdomen left and right lower quadrant) Quality: Reports: Sharp, Throbbing Improves with: Reports: None Worsens with: Reports: None Associated Symptoms: Reports: No Other Symptoms Middle Abdomen Pain Score (Numeric/FACES): 10 - Related Data Allergies/Adverse Reactions: Allergies Allergy/AdvReac Type Severity Reaction Status Date / Time No Known Allergies Allergy Verified 05/22/20 17:48 Home Medications: Home Meds Escitalopram [Lexapro] 20 mg PO BEDTIME 03/25/20 [History] Melatonin 10 mg PO BEDTIME 03/25/20 [History] Cetirizine HCl [Zyrtec] 10 mg PO BEDTIME 05/22/20 [History] Past Medical History HEENT History: Reports: Allergic Rhinitis Cardiovascular History: Reports: None Respiratory History: Reports: None Musculoskeletal History: Reports: None Psychiatric History: Reports: Anxiety, Depression Endocrine/Metabolic History: Reports: None Oncologic (Cancer) History: Reports: None - Past Surgical History HEENT Surgical History: Reports: Oral Surgery, Other (See Below) Other HEENT Surgeries/Procedures: [place] teeth removed 03/27 Social & Family History - Family History Family Medical History: No Pertinent Family History - Tobacco Use Tobacco Use Status *Q: Never Tobacco User Second Hand Smoke Exposure: No - Caffeine Use Caffeine Use: Reports: None - Alcohol Use Days Per Week of Alcohol Use: 0 - Recreational Drug Use Recreational Drug Use: No - Living Situation & Occupation Living situation: Reports: with Family Occupation: Student (10th grade) H&P Review of Systems - Review of Systems: Review Of Systems: See Below General: Reports: No Symptoms HEENT: Reports: No Symptoms Pulmonary: Reports: No Symptoms Cardiovascular: Reports: No Symptoms Gastrointestinal: Reports: Abdominal Pain, Nausea, Vomiting Genitourinary: Reports: No Symptoms Musculoskeletal: Reports: No Symptoms Skin: Reports: No Symptoms Psychiatric: Reports: No Symptoms Neurological: Reports: No Symptoms Hematologic/Lymphatic: Reports: No Symptoms Immunologic: Reports: No Symptoms Exam - Exam Exam: See Below - Vital Signs Vital Signs: Last Vital Signs Temp 98.8 F 05/23/20 11:38 Pulse 107 H 05/23/20 11:38 Resp 16 05/23/20 11:38 BP 106/49 L 05/23/20 11:38 Pulse Ox 100 05/23/20 11:38 Weight: 150 lb 8 oz - Exam General: Alert, Oriented GI/Abdominal Exam: Guarding, Rebound, Tender, Abnormal Bowel Sounds (hypoactivwe) (Female) Exam: Normal External Exam, Normal Bimanual Exam - Patient Data Lab Results Last 24 hrs: Laboratory Results - last 24 hr 05/22/20 05/22/20 05/22/20 Range/Units 18:25 18:25 18:25 WBC 18.82 H (3.98-10.04) K/mm3 RBC 4.87 (3.98-5.22) M/mm3 Hgb 13.7 (11.2-15.7) gm/dl Hct 40.7 (34.1-44.9) % MCV 83.6 (79.4-94.8) fl MCH 28.1 (25.6-32.2) pg MCHC 33.7 (32.2-35.5) g/dl RDW Std Deviation 39.8 (36.4-46.3) fL Plt Count 353 (182-369) K/mm3 MPV 8.5 L (9.4-12.3) fl Neut % (Auto) 80.5 H (34.0-71.1) % Lymph % (Auto) 13.2 L (19.3-51.7) % Stearns % (Auto) 4.1 L (4.7-12.5) % Eos % (Auto) 1.7 (0.7-5.8) Baso % (Auto) 0.2 (0.1-1.2) % Neut # (Auto) 15.16 H (1.56-6.13) K/mm3 Lymph # (Auto) 2.48 (1.18-3.74) K/mm3 Stearns # (Auto) 0.78 H (0.24-0.36) K/mm3 Eos # (Auto) 0.32 (0.04-0.36) K/mm3 Baso # (Auto) 0.03 (0.01-0.08) K/mm3 Manual Slide Review Sodium 142 (136-145) mEq/L Potassium 3.5 (3.5-5.1) mEq/L Chloride 104 (98-107) mEq/L Carbon Dioxide 25 (21-32) mEq/L Anion Gap 16.5 H (5-15) BUN 15 (7-18) mg/dL Creatinine 0.9 (0.55-1.02) mg/dL Est Cr Clr Drug Dosing 94.12 mL/min Estimated GFR (MDRD) > 60 (>60) mL/min BUN/Creatinine Ratio 16.7 (14-18) Glucose 103 (74-106) mg/dL Calcium 9.0 (8.5-10.1) mg/dL Total Bilirubin 0.3 (0.2-1.0) mg/dL AST 17 (15-37) U/L ALT 30 (14-59) U/L Alkaline Phosphatase 67 (46-116) U/L C-Reactive Protein 0.3 (<1.0) mg/dL Total Protein 7.6 (6.4-8.2) g/dl Albumin 3.8 (3.4-5.0) g/dl Globulin 3.8 gm/dL Albumin/Globulin Ratio 1.0 (1-2) HCG, Qual Negative (NEGATIVE) SARS-CoV-2 RNA (KOREY) (NEGATIVE) 05/22/20 Range/Units 22:23 WBC (3.98-10.04) K/mm3 RBC (3.98-5.22) M/mm3 Hgb (11.2-15.7) gm/dl Hct (34.1-44.9) % MCV (79.4-94.8) fl MCH (25.6-32.2) pg MCHC (32.2-35.5) g/dl RDW Std Deviation (36.4-46.3) fL Plt Count (182-369) K/mm3 MPV (9.4-12.3) fl Neut % (Auto) (34.0-71.1) % Lymph % (Auto) (19.3-51.7) % Stearns % (Auto) (4.7-12.5) % Eos % (Auto) (0.7-5.8) Baso % (Auto) (0.1-1.2) % Neut # (Auto) (1.56-6.13) K/mm3 Lymph # (Auto) (1.18-3.74) K/mm3 Stearns # (Auto) (0.24-0.36) K/mm3 Eos # (Auto) (0.04-0.36) K/mm3 Baso # (Auto) (0.01-0.08) K/mm3 Manual Slide Review Sodium (136-145) mEq/L Potassium (3.5-5.1) mEq/L Chloride (98-107) mEq/L Carbon Dioxide (21-32) mEq/L Anion Gap (5-15) BUN (7-18) mg/dL Creatinine (0.55-1.02) mg/dL Est Cr Clr Drug Dosing mL/min Estimated GFR (MDRD) (>60) mL/min BUN/Creatinine Ratio (14-18) Glucose (74-106) mg/dL Calcium (8.5-10.1) mg/dL Total Bilirubin (0.2-1.0) mg/dL AST (15-37) U/L ALT (14-59) U/L Alkaline Phosphatase (46-116) U/L C-Reactive Protein (<1.0) mg/dL Total Protein (6.4-8.2) g/dl Albumin (3.4-5.0) g/dl Globulin gm/dL Albumin/Globulin Ratio (1-2) HCG, Qual (NEGATIVE) SARS-CoV-2 RNA (KOREY) Negative (NEGATIVE) Result Diagrams: 05/22/20 18:25 05/22/20 18:25 Sepsis Event Note - Evaluation Sepsis Screening Result: No Definite Risk - Focused Exam Vital Signs: Vital Signs Temp Pulse Resp BP Pulse Ox 05/23/20 11:38 98.8 F 107 H 16 106/49 L 100 05/23/20 08:27 114 H 95 05/23/20 07:36 98.8 F 16 99/36 L 05/23/20 04:20 99.7 F 107 H 20 104/47 L 99 Consult PN Assessment/Plan Procedures: Procedures ASSAY OF LIPASE (03/25/20) ASSAY THYROID STIM HORMONE (01/27/16) C-REACTIVE PROTEIN (03/25/20) CHORIONIC GONADOTROPIN ASSAY (03/25/20) COMPLETE CBC W/AUTO DIFF WBC (03/25/20) COMPREHEN METABOLIC PANEL (03/25/20) EMERGENCY DEPT VISIT (03/25/20) ROUTINE VENIPUNCTURE (03/25/20) THER/PROPH/DIAG INJ IV PUSH (03/25/20) TX/PRO/DX INJ NEW DRUG ADDON (03/25/20) TX/PRO/DX INJ SAME DRUG AUTO BATTERY BUILDER (03/25/20) URINALYSIS AUTO W/SCOPE (03/25/20) (1) Abdominal pain, acute, bilateral lower quadrant SNOMED Code(s): 469733221 Code(s): R10.31 - RIGHT LOWER QUADRANT PAIN; R10.32 - LEFT LOWER QUADRANT PAIN Current Visit: Yes (2) Ovarian cyst SNOMED Code(s): 51793742 Code(s): N83.209 - UNSPECIFIED OVARIAN CYST, UNSPECIFIED SIDE Current Visit: Yes Problem List Initiated/Reviewed/Updated: No Plan: Proceed with laparoscopic examination possible appendectomy, possible removal of a tube and/or ovary
[2020-05-23] MEDS ORDERED: Albuterol/Ipratropium 3.0-0.5 MG/3 ML Neb Soln NEB STA (15:12)
[2020-05-23] MEDS ORDERED: fentaNYL 100 MCG/2 ML SDV IVPUSH PRN (15:12)
[2020-05-23] MEDS ORDERED: Albuterol/Ipratropium 3.0-0.5 MG/3 ML Neb Soln ONE (15:17)
--- NOTE | 2020-05-23 15:17 | PCM.OPNOTE ---
- General Post-Op/Procedure Note Date of Surgery/Procedure: 05/23/20 Operative Procedure(s): Laparoscopic appendectomy with Dr. Gavin. Evaluation of the pelvic organs by Dr. Verde Pre Op Diagnosis: Acute onset abdominal pain bilateral left and right lower quadrant of the abdomen ovarian cyst Post-Op Diagnosis: Same plus ruptured appendix, ruptured corpus luteum cyst left ovary not bleeding not removed Primary Surgeon: Naya Gavin Secondary Surgeon: Talib Verde Anesthesia Provider: Juan Penn (Devon Pires ) Reason Sewer And Inspector Was Necessary: Evaluate pelvic organs assist in surgery decrease comorbidity and mortality Role of Sewer And Inspector: Evaluate pelvic organs assist in surgery decrease comorbidity and mortality Drain/Tube Comments:: Rosales during surgery removed after surgery completed Complications: See Dr Gavin Operative report Condition: Good Free Text/Narrative:: Intake & Output 05/23/20 05/23/20 05/23/20 06:59 14:59 22:59 Intake Total 420 Output Total 950 Balance -[address] Verde dictating only the RIVER RAFTING GUIDE portion of the procedure. After completion of the appendectomy ruptured appendix and irrigation removal of fibrinous adhesions examination of the pelvic organs revealed normal fallopian tubes bilaterally right ovary was normal the left ovary appeared normal with the exception of a corpus luteum hemorrhagicum ruptured not bleeding not removed. No blood in the pelvis RIVER RAFTING GUIDE examination otherwise normal. See main operative report for the surgeons portion of the procedure.
--- NOTE | 2020-05-23 15:45 | OR ---
DATE OF OPERATION: 05/23/2020 SURGEON: Naya Gavin MD PREOPERATIVE DIAGNOSIS: Acute onset low abdominal pain. POSTOPERATIVE DIAGNOSIS: 1. Acute perforated appendicitis. 2. Hemorrhagic ruptured corpus luteal cyst. OPERATION PERFORMED: 1. Diagnostic laparoscopy. 2. Laparoscopic surgical appendectomy. ANESTHESIA: General anesthesia with local anesthetic consisting 1% lidocaine with 1:100,000 epinephrine. ESTIMATED BLOOD LOSS: Minimal. COMPLICATIONS: None. DIGITAL CARTOGRAPHER: Dr. Talib Verde was consulted in this case and he provided assistance as well as performed diagnostic laparoscopy to examine the ovaries bilaterally, and he confirmed hemorrhagic ovarian cyst and decision was made to leave those alone. INDICATION AND CONSENT: Ms. Whaley is a 19-year-old female who had acute onset of abdominal pain suddenly last night. The patient came to the emergency department. She also has nausea and vomiting. In the ER, CT scan was done. There was moderate pelvic fluid and mildly enhancing and dilated appendix as well as a 6 cm left- sided ovarian cyst. There was concern for acute appendicitis. Given these findings, the patient was admitted to be evaluated. I saw the patient, evaluated the patient, found that the patient had bilateral lower abdominal pain and not localized necessarily to the right, and I reviewed the CT scan and there was concern because there was moderate amount of free fluid in the pelvis. Given these findings, I was concerned for ovarian pathology along with appendicitis. I consulted Dr. Verde to evaluate the patient and together we decided to take the patient for diagnostic laparoscopy, appendectomy, and evaluation of the ovaries. We discussed with the patient and the patient's mother the risks, benefits, and alternatives to these procedures. They both agreed to proceed with the procedure and informed consent was obtained. DESCRIPTION OF PROCEDURE: The patient was taken to the operating room, placed in supine position. The patient was padded appropriately and perioperative antibiotics were provided. Then, we clipped the hair in the lower pelvis and the abdomen was prepped and draped in the usual sterile fashion. A formal time-out was performed and then procedure was began. We began the procedure by injecting local anesthetic in the infraumbilical position. Incision was made. A Veress needle was placed and the abdomen was insufflated to 15 mmHg. Then, a 12 mm trocar was inserted under visualization with the laparoscope. Upon entry to the abdomen, we placed the laparoscope and inspected the abdomen. There was moderate amount of proteinaceous exudate in the pelvis and some bloody pelvic fluid, but the liver and the rest of the abdomen appeared normal. There were no signs of injury due to trocar insertion or Veress needle insertion. Then, we placed 2 additional 5 mm trocars, one in the left lower quadrant, another one in the suprapubic area. Then, the patient was placed in the Trendelenburg position and with left-side down and we began to focus on the right lower pelvis. The appendix was identified. It was deep in the lower pelvis just below the pelvic brim. There was extensive proteinaceous exudate around the appendix and the cecum. Appendix was inflamed. We elevated the appendix, removed the adhesions towards it and then noted that there was a small perforation at the base of the appendix. There was no clear pus in the pelvis, but there was a perforation at that site. The mesoappendix was taken with LigaSure Impact and then the appendix was taken with a blue load using Endo-POLLY stapler. The appendix was placed in the EndoCatch bag and removed through the infraumbilical trocar. Then, the 12 mm umbilical trocar was reinserted into the abdomen. We began with pelvic exploration. Dr. Verde explored both the fallopian tubes and both ovaries. The right ovary appeared normal. The left ovary appeared to have a ruptured corpus luteum cyst. Close exam orevealed that the cyst was not bleeding any longer, therefore a decision was made not to remove it. More details to be dictated separately by Dr. Verde. Once this was done, we irrigated the abdomen and suctioned out exudate. We inspected the staple line and appeared to be intact and the abdomen desufflated. We closed the fascia at the infraumbilical position with 0 Vicryl stitch and skin at all 3 sites was closed with 4-0 Monocryl and Dermabond was applied. Of note, during the exploration of the abdomen, after the patient was placed in the Trendelenburg and left-side down, she did slip off the bed slightly and we were able to catch the patient and put her back on the operating room table. There were no obvious injuries. This event was discussed with the patient's mother immediately post op. At the end of the procedure, all instrument, sharps, and sponges were counted and found to be correct. The patient was awakened, extubated, and taken to the PACU. We will put the patient back for observation with IV antibiotics until white count is trending down and the patient is feeling well. MMLUCI /[id number] MTDD
--- NOTE | 2020-05-23 16:25 | PCM.POSTAN ---
POST ANESTHESIA ASSESSMENT - MENTAL STATUS Mental Status: Alert, Oriented - VITAL SIGNS Vital Signs: 1509 Vital signs 95/46 130 HR 17 RR 94% FM 10L 100.2 F - RESPIRATORY Respiratory Status: Respiratory Rate WNL, Airway Patent, O2 Saturation Stable (low SpO2 94 on FM), Supplemental Oxygen, Wheezing - CARDIOVASCULAR CV Status: Blood Pressure Stable, Elevated Pulse Rate, Other (Febrile) - GASTROINTESTINAL GI Status: No Symptoms - PAIN Pain Score: 0 - POST OP HYDRATION Hydration Status: Adequate & Stable
--- NOTE | 2020-05-23 16:26 | PCM48HPAN ---
Post Anesthesia Note - EVALUATION WITHIN 48HRS OF ANESTHETIC Vital Signs in Normal Range: Yes Patient Participated in Evaluation: Yes Respiratory Function Stable: Yes Airway Patent: Yes Cardiovascular Function Stable: Yes Hydration Status Stable: Yes Pain Control Satisfactory: Yes Nausea and Vomiting Control Satisfactory: Yes Mental Status Recovered: Yes Vital Signs: Last Vital Signs Temp 97.5 F 05/23/20 16:25 Pulse 108 H 05/23/20 16:25 Resp 18 05/23/20 16:25 BP 97/59 L 05/23/20 16:25 Pulse Ox 95 05/23/20 16:25 - COMMENTS/OBSERVATIONS Free Text/Narrative:: Patient is being transferred back to Med Surg floor rm 14 on 2L O2.
[2020-05-23] MEDS: Sodium Chloride 0.9% 1,000 ML IV SCH (16:54)
[2020-05-23] MEDS ORDERED: Ertapenem 1 GM in Sodium Chloride 0.9% 50 ML IV SCH (21:00)
[2020-05-23] MEDS: Melatonin 3 MG Tab PO SCH (21:59)
[2020-05-23] MEDS: Loratadine 10 MG Tab PO SCH (22:01)
[2020-05-23] MEDS: Citalopram 20 MG Tab PO SCH (22:02)
[2020-05-24] MEDS: Sodium Chloride 0.9% 1,000 ML IV SCH ×2 (01:02→09:21)
--- NOTE | 2020-05-24 10:32 | PCM.PN ---
- General Info Date of Service: 05/24/20 Admission Dx/Problem (Free Text): Admission Diagnosis/Problem Admission Diagnosis/Problem Appendicitis Subjective Update: Reports that she is feeling 100 times better than yesterday. She is tolerating clears, incisions are a little sore but otherwise feels ok. No muscle or bone soreness Functional Status: Reports: Pain Controlled, Tolerating Diet (CLD), Urinating - Review of Systems General: Reports: No Symptoms HEENT: Reports: No Symptoms Pulmonary: Reports: No Symptoms Cardiovascular: Reports: No Symptoms Gastrointestinal: Reports: Abdominal Pain (lower abdomen) Musculoskeletal: Reports: No Symptoms Skin: Reports: No Symptoms - Patient Data Vitals - Most Recent: Last Vital Signs Temp 97.5 F 05/24/20 08:09 Pulse 83 05/24/20 08:09 Resp 14 05/24/20 08:09 BP 108/52 L 05/24/20 08:09 Pulse Ox 95 05/24/20 08:09 Weight - Most Recent: 68.583 kg I&O - Last 24 Hours: Intake & Output 05/23/20 05/24/20 05/24/20 22:59 06:59 14:59 Intake Total 2080 2433 Output Total 100 1450 Balance 1980 983 Lab Results Last 24 Hours: Laboratory Results - last 24 hr 05/24/20 05/24/20 Range/Units 06:05 06:05 WBC 20.03 H (3.98-10.04) K/mm3 RBC 4.17 (3.98-5.22) M/mm3 Hgb 11.7 D (11.2-15.7) gm/dl Hct 35.7 (34.1-44.9) % MCV 85.6 (79.4-94.8) fl MCH 28.1 (25.6-32.2) pg MCHC 32.8 (32.2-35.5) g/dl RDW Std Deviation 41.9 (36.4-46.3) fL Plt Count 244 D (182-369) K/mm3 MPV 9.1 L (9.4-12.3) fl Neut % (Auto) 93.1 H (34.0-71.1) % Lymph % (Auto) 3.8 L (19.3-51.7) % [place] % (Auto) 3.0 L (4.7-12.5) % Eos % (Auto) 0 L (0.7-5.8) Baso % (Auto) 0.0 L (0.1-1.2) % Neut # (Auto) 18.61 H (1.56-6.13) K/mm3 Lymph # (Auto) 0.77 L (1.18-3.74) K/mm3 [place] # (Auto) 0.61 H (0.24-0.36) K/mm3 Eos # (Auto) 0.01 L (0.04-0.36) K/mm3 Baso # (Auto) 0.00 L (0.01-0.08) K/mm3 Manual Slide Review Abnormal smear Sodium 143 (136-145) mEq/L Potassium 4.1 (3.5-5.1) mEq/L Chloride 109 H (98-107) mEq/L Carbon Dioxide 23 (21-32) mEq/L Anion Gap 15.1 H (5-15) BUN 10 (7-18) mg/dL Creatinine 0.8 (0.55-1.02) mg/dL Est Cr Clr Drug Dosing 105.89 mL/min Estimated GFR (MDRD) > 60 (>60) mL/min BUN/Creatinine Ratio 12.5 L (14-18) Glucose 124 H (74-106) mg/dL Calcium 8.6 (8.5-10.1) mg/dL Phosphorus 2.2 L (2.6-4.7) mg/dL Magnesium 1.8 (1.8-2.4) mg/dl Med Orders - Current: Current Medications Hydrocodone Bitart/Acetaminophen (Acetaminophen/Hydrocodone 325-5 Mg Tab) 1 tab PO Q4H PRN PRN Reason: Pain (moderate 4-6) Citalopram Hydrobromide (Citalopram 20 Mg Tab) 40 mg PO BEDTIME [facility] Last Admin: 05/23/20 22:02 Dose: 40 mg Documented by: Docusate Sodium (Docusate Sodium 100 Mg Cap) 100 mg PO BID PRN PRN Reason: Constipation Hydromorphone HCl (Hydromorphone 0.5 Mg/0.5 Ml Syringe) 0.5 mg IVPUSH Q3H PRN PRN Reason: Pain (severe 7-10) Piperacillin Sod/Tazobactam (Sod 4.5 gm/ Sodium Chloride) 100 mls @ 25 mls/hr IV Q8H [facility] Loratadine (Loratadine 10 Mg Tab) 10 mg PO BEDTIME [facility] Last Admin: 05/23/20 22:01 Dose: 10 mg Documented by: Melatonin (Melatonin 3 Mg Tab) 9 mg PO BEDTIME [facility] Last Admin: 05/23/20 21:59 Dose: 9 mg Documented by: Ondansetron HCl (Ondansetron 4 Mg/2 Ml Sdv) 4 mg IVPUSH Q6H PRN PRN Reason: Nausea/Vomiting Sodium Chloride (Sodium Chloride 0.9% 10 Ml Syringe) 10 ml FLUSH ASDIRECTED PRN PRN Reason: Keep Vein Open Last Admin: 05/22/20 21:55 Dose: 10 ml Documented by: Sodium Phosphate (Phosphorus #1 250 Mg Tab) 250 mg PO QID [facility] Discontinued Medications Albuterol/Ipratropium (Albuterol/Ipratropium 3.0-0.5 Mg/3 Ml Neb Soln) 3 ml NEB ONETIME STA Stop: 05/23/20 15:13 Last Admin: 05/23/20 15:21 Dose: 3 ml Documented by: Albuterol/Ipratropium (Albuterol/Ipratropium 3.0-0.5 Mg/3 Ml Neb Soln) Confirm Administered Dose 3 ml .ROUTE .STK-MED ONE Stop: 05/23/20 15:18 Last Admin: 05/23/20 15:21 Dose: Not Given Documented by: Bupivacaine HCl/Epinephrine Bitart (Bupivacaine 0.5%/Epinephrine 1:200,000 50 Ml Mdv) Confirm Administered Dose 50 ml .ROUTE .STK-MED ONE Stop: 05/23/20 11:41 Last Admin: 05/23/20 13:28 Dose: 24 ml Documented by: Fentanyl (Fentanyl 250 Mcg/5 Ml Sdv) Confirm Administered Dose 250 mcg .ROUTE .STK-MED ONE Stop: 05/23/20 11:33 Fentanyl (Fentanyl 100 Mcg/2 Ml Sdv) 100 mcg IVPUSH ONETIME PRN PRN Reason: Pain Stop: 05/23/20 17:00 Hydromorphone HCl (Hydromorphone 0.5 Mg/0.5 Ml Syringe) 0.5 mg IVPUSH ONETIME ONE Stop: 05/22/20 18:03 Last Admin: 05/22/20 18:30 Dose: 0.5 mg Documented by: Hydromorphone HCl (Hydromorphone 0.5 Mg/0.5 Ml Syringe) 0.5 mg IVPUSH ONETIME ONE Stop: 05/22/20 21:10 Last Admin: 05/22/20 21:14 Dose: 0.5 mg Documented by: Hydromorphone HCl (Hydromorphone 0.5 Mg/0.5 Ml Syringe) 0.5 mg IVPUSH ONETIME ONE Stop: 05/22/20 22:37 Last Admin: 05/22/20 22:40 Dose: 0.5 mg Documented by: Hydromorphone HCl (Hydromorphone 0.5 Mg/0.5 Ml Syringe) 0.5 mg IVPUSH Q2H PRN PRN Reason: Pain Last Admin: 05/23/20 12:24 Dose: 0.5 mg Documented by: Hydromorphone HCl (Hydromorphone 0.5 Mg/0.5 Ml Syringe) Confirm Administered Dose 0.5 mg .ROUTE .STK-MED ONE Stop: 05/23/20 13:33 Hydromorphone HCl (Hydromorphone 0.5 Mg/0.5 Ml Syringe) 0.5 mg IVPUSH ONETIME PRN PRN Reason: Pain (severe 7-10) Stop: 05/23/20 17:00 Sodium Chloride (Normal Saline) 1,000 mls @ 150 mls/hr IV NOW STA Stop: 05/23/20 00:41 Last Admin: 05/22/20 18:32 Dose: 150 mls/hr Documented by: Ertapenem 1 gm/ Sodium (Chloride) 50 mls @ 100 mls/hr IV ONETIME ONE Stop: 05/22/20 22:47 Last Admin: 05/22/20 22:35 Dose: 100 mls/hr Documented by: Lactated Ringer's (Ringers, Lactated) 1,000 mls @ 100 mls/hr IV ASDIRECTED [facility] Last Admin: 05/23/20 10:15 Dose: 100 mls/hr Documented by: Lidocaine HCl (Xylocaine-Mpf 1%) Confirm Administered Dose 4 mls @ as directed .ROUTE .STK-MED ONE Stop: 05/23/20 11:33 Cefoxitin Sodium 2 gm/ Premix 50 mls @ 100 mls/hr IV ONETIME ONE Stop: 05/23/20 13:25 Last Admin: 05/23/20 17:21 Dose: Not Given Documented by: Lactated Ringer's (Ringers, Lactated) Confirm Administered Dose 1,000 mls @ as directed .ROUTE .STK-MED ONE Stop: 05/23/20 13:24 Sodium Chloride (Normal Saline) 1,000 mls @ 125 mls/hr IV ASDIRECTED [facility] Last Admin: 05/24/20 09:21 Dose: 125 mls/hr Documented by: Ertapenem 1 gm/ Sodium (Chloride) 50 mls @ 100 mls/hr IV Q24H [facility] Last Admin: 05/23/20 21:56 Dose: 100 mls/hr Documented by: Cefoxitin Sodium (Mefoxin In Dextrose,Iso-Osm 2 Gm/50 Ml) Confirm Administered Dose 50 mls @ as directed .ROUTE .STK-MED ONE Stop: 05/23/20 15:21 Iopamidol (Iopamidol 612 Mg/Ml 100 Ml Bottle) 100 ml IVPUSH ONETIME ONE Stop: 05/22/20 21:56 Last Admin: 05/22/20 21:55 Dose: 100 ml Documented by: Midazolam HCl (Midazolam 1 Mg/Ml 2 Ml Sdv) Confirm Administered Dose 4 mg .ROUTE .STK-MED ONE Stop: 05/23/20 11:33 Miscellaneous Medication (Phenylephrine Hcl In 0.9% Nacl 1 Mg/10 Ml Syringe) Confirm Administered Dose 1 mg .ROUTE .STK-MED ONE Stop: 05/23/20 13:31 Ondansetron HCl (Ondansetron 4 Mg/2 Ml Sdv) 4 mg IVPUSH ONETIME ONE Stop: 05/22/20 18:03 Last Admin: 05/22/20 18:26 Dose: 4 mg Documented by: Ondansetron HCl (Ondansetron 4 Mg/2 Ml Sdv) 4 mg IVPUSH Q6H PRN PRN Reason: Nausea Last Admin: 05/23/20 04:34 Dose: 4 mg Documented by: Ondansetron HCl (Ondansetron 4 Mg/2 Ml Sdv) Confirm Administered Dose 8 mg .ROUTE .STK-MED ONE Stop: 05/23/20 14:28 Propofol (Propofol 200 Mg/20 Ml Sdv) Confirm Administered Dose 200 mg .ROUTE .STK-MED ONE Stop: 05/23/20 11:32 Rocuronium [place] (Rocuronium 50 Mg/5 Ml Vial) Confirm Administered Dose 50 mg .ROUTE .STK-MED ONE Stop: 05/23/20 11:34 Sugammadex Sodium (Sugammadex Sodium 500 Mg/5 Ml Vial) Confirm Administered Dose 500 mg .ROUTE .STK-MED ONE Stop: 05/23/20 14:32 - Exam General: Alert, Oriented, Cooperative Lungs: Clear to Auscultation, Normal Respiratory Effort Cardiovascular: Regular Rate, Regular Rhythm GI/Abdominal Exam: Soft, Tender (lower abdomen and around the incisions. Incisions c/d/i) - Patient Data Lab Results Last 24 hrs: Laboratory Results - last 24 hr 05/24/20 05/24/20 Range/Units 06:05 06:05 WBC 20.03 H (3.98-10.04) K/mm3 RBC 4.17 (3.98-5.22) M/mm3 Hgb 11.7 D (11.2-15.7) gm/dl Hct 35.7 (34.1-44.9) % MCV 85.6 (79.4-94.8) fl MCH 28.1 (25.6-32.2) pg MCHC 32.8 (32.2-35.5) g/dl RDW Std Deviation 41.9 (36.4-46.3) fL Plt Count 244 D (182-369) K/mm3 MPV 9.1 L (9.4-12.3) fl Neut % (Auto) 93.1 H (34.0-71.1) % Lymph % (Auto) 3.8 L (19.3-51.7) % [place] % (Auto) 3.0 L (4.7-12.5) % Eos % (Auto) 0 L (0.7-5.8) Baso % (Auto) 0.0 L (0.1-1.2) % Neut # (Auto) 18.61 H (1.56-6.13) K/mm3 Lymph # (Auto) 0.77 L (1.18-3.74) K/mm3 [place] # (Auto) 0.61 H (0.24-0.36) K/mm3 Eos # (Auto) 0.01 L (0.04-0.36) K/mm3 Baso # (Auto) 0.00 L (0.01-0.08) K/mm3 Manual Slide Review Abnormal smear Sodium 143 (136-145) mEq/L Potassium 4.1 (3.5-5.1) mEq/L Chloride 109 H (98-107) mEq/L Carbon Dioxide 23 (21-32) mEq/L Anion Gap 15.1 H (5-15) BUN 10 (7-18) mg/dL Creatinine 0.8 (0.55-1.02) mg/dL Est Cr Clr Drug Dosing 105.89 mL/min Estimated GFR (MDRD) > 60 (>60) mL/min BUN/Creatinine Ratio 12.5 L (14-18) Glucose 124 H (74-106) mg/dL Calcium 8.6 (8.5-10.1) mg/dL Phosphorus 2.2 L (2.6-4.7) mg/dL Magnesium 1.8 (1.8-2.4) mg/dl Result Diagrams: 05/24/20 06:05 05/24/20 06:05 Sepsis Event Note - Evaluation Sepsis Screening Result: No Definite Risk - Focused Exam Vital Signs: Vital Signs Temp Pulse Resp BP Pulse Ox 05/24/20 08:09 97.5 F 83 14 108/52 L 95 05/24/20 05:23 98.1 F 74 13 101/55 L 97 05/24/20 01:20 97.7 F 107 H 12 98/54 L 97 05/23/20 22:33 86 95 - Problem List Review Problem List Initiated/Reviewed/Updated: No - My Orders Last 24 Hours: My Active Orders 05/23/20 09:51 Schedule Procedure [COMM] Routine 05/23/20 12:56 Consult to Physician [CONS] Stat 05/23/20 12:58 Notify Provider Consults [RC] ASDIRECTED 05/23/20 14:49 Intake and Output [RC] ,16 July Shower [RC] ASDIRECTED Oxygen Therapy [RC] PRN RT Incentive Spirometry [RC] Q1HWA Up ad Sachi [RC] ASDIRECTED Vital Signs [RC] Q4HR Acetaminophen/HYDROcodone [[place] 325-5 MG] 1 tab PO Q4H PRN Docusate Sodium [Colace] 100 mg PO BID PRN HYDROmorphone [Dilaudid] 0.5 mg IVPUSH Q3H PRN Ondansetron [Zofran] 4 mg IVPUSH Q6H PRN 05/23/20 18:06 Patient Status [ADT] Routine 05/23/20 21:00 Citalopram [Celexa] 40 mg PO BEDTIME Loratadine [Claritin] 10 mg PO BEDTIME Melatonin 9 mg PO BEDTIME 05/24/20 10:30 Piperacillin/Tazobactam [Piperacil-Tazobact] 4.5 gm Sodium Chloride 0.9% [Normal Saline] 100 ml IV Q8H 05/24/20 Lunch Regular Diet [DIET] 05/24/20 13:00 Phosphorus #1 [Neutra-Phos] 250 mg PO QID 05/25/20 05:11 BASIC METABOLIC PANEL,BMP [CHEM] AM CBC WITH AUTO DIFF [HEME] AM MAGNESIUM [CHEM] AM PHOSPHORUS [CHEM] AM 05/26/20 05:11 BASIC METABOLIC PANEL,BMP [CHEM] AM CBC WITH AUTO DIFF [HEME] AM MAGNESIUM [CHEM] AM PHOSPHORUS [CHEM] AM - Assessment Assessment:: POD1 diagnostic laparoscopy and appendectomy. Progressing well. - Plan Plan:: - feels well. tolerating diet - WIll advance diet to regular - DC IVF - WBC still high at 20. Will broaden antibiotics to Zosyn today - Encourage ambulation, IS - Replete lytes - phos today - Will monitor her today. I would like to see WBC trending down before considering discharge
[2020-05-24] MEDS ORDERED: Piperacillin/Tazobactam 4.5 GM in Sodium Chloride 0.9% 100 ML IV ONE (11:00)
[2020-05-24] MEDS: Phosphorus #1 250 MG Tab PO SCH ×3 (12:39→21:41)
[2020-05-24] MEDS: Piperacillin/Tazobactam 4.5 GM in Sodium Chloride 0.9% 100 ML IV SCH (18:03)
[2020-05-24] MEDS: Melatonin 3 MG Tab PO SCH (21:40)
[2020-05-24] MEDS: Citalopram 20 MG Tab PO SCH (21:40)
[2020-05-24] MEDS: Loratadine 10 MG Tab PO SCH (21:41)
[2020-05-25] MEDS: Piperacillin/Tazobactam 4.5 GM in Sodium Chloride 0.9% 100 ML IV SCH (02:52)
[2020-05-25] MEDS: Phosphorus #1 250 MG Tab PO SCH (08:00)
--- NOTE | 2020-05-25 11:18 | PCM.PN ---
- General Info Date of Service: 05/25/20 Admission Dx/Problem (Free Text): Admission Diagnosis/Problem Admission Diagnosis/Problem Appendicitis Subjective Update: had some nausea at night but no vomiting. otherwise tolerated diet. Had a bout of bad diarrhea overnight. Functional Status: Reports: Pain Controlled, Tolerating Diet, Ambulating, Urinating - Review of Systems General: Reports: No Symptoms HEENT: Reports: No Symptoms Pulmonary: Reports: No Symptoms Cardiovascular: Reports: No Symptoms Gastrointestinal: Reports: Abdominal Pain Genitourinary: Reports: No Symptoms Musculoskeletal: Reports: No Symptoms Skin: Reports: No Symptoms Neurological: Reports: No Symptoms - Patient Data Vitals - Most Recent: Last Vital Signs Temp 98.6 F 05/25/20 07:56 Pulse 81 05/25/20 07:56 Resp 14 05/25/20 07:56 BP 109/64 05/25/20 07:56 Pulse Ox 100 05/25/20 07:56 Weight - Most Recent: 68.447 kg I&O - Last 24 Hours: Intake & Output 05/24/20 05/25/20 05/25/20 22:59 06:59 14:59 Intake Total 1370 1000 Output Total 750 625 Balance 620 375 Lab Results Last 24 Hours: Laboratory Results - last 24 hr 05/25/20 05/25/20 Range/Units 05:32 05:32 WBC 13.02 H (3.98-10.04) K/mm3 RBC 3.75 L (3.98-5.22) M/mm3 Hgb 10.6 L (11.2-15.7) gm/dl Hct 32.4 L (34.1-44.9) % MCV 86.4 (79.4-94.8) fl MCH 28.3 (25.6-32.2) pg MCHC 32.7 (32.2-35.5) g/dl RDW Std Deviation 42.5 (36.4-46.3) fL Plt Count 231 (182-369) K/mm3 MPV 9.1 L (9.4-12.3) fl Neut % (Auto) 78.6 H (34.0-71.1) % Lymph % (Auto) 13.6 L (19.3-51.7) % [place] % (Auto) 6.9 (4.7-12.5) % Eos % (Auto) 0.5 L (0.7-5.8) Baso % (Auto) 0.1 (0.1-1.2) % Neut # (Auto) 10.24 H (1.56-6.13) K/mm3 Lymph # (Auto) 1.77 (1.18-3.74) K/mm3 [place] # (Auto) 0.90 H (0.24-0.36) K/mm3 Eos # (Auto) 0.06 (0.04-0.36) K/mm3 Baso # (Auto) 0.01 (0.01-0.08) K/mm3 Sodium 144 (136-145) mEq/L Potassium 3.5 (3.5-5.1) mEq/L Chloride 109 H (98-107) mEq/L Carbon Dioxide 24 (21-32) mEq/L Anion Gap 14.5 (5-15) BUN 15 (7-18) mg/dL Creatinine 0.9 (0.55-1.02) mg/dL Est Cr Clr Drug Dosing 94.12 mL/min Estimated GFR (MDRD) > 60 (>60) mL/min BUN/Creatinine Ratio 16.7 (14-18) Glucose 108 H (74-106) mg/dL Calcium 8.2 L (8.5-10.1) mg/dL Phosphorus 3.1 (2.6-4.7) mg/dL Magnesium 1.7 L (1.8-2.4) mg/dl Med Orders - Current: Current Medications Hydrocodone Bitart/Acetaminophen (Acetaminophen/Hydrocodone 325-5 Mg Tab) 1 tab PO Q4H PRN PRN Reason: Pain (moderate 4-6) Last Admin: 05/24/20 21:41 Dose: 1 tab Documented by: Citalopram Hydrobromide (Citalopram 20 Mg Tab) 40 mg PO BEDTIME [facility] Last Admin: 05/24/20 21:40 Dose: 40 mg Documented by: Docusate Sodium (Docusate Sodium 100 Mg Cap) 100 mg PO BID PRN PRN Reason: Constipation Hydromorphone HCl (Hydromorphone 0.5 Mg/0.5 Ml Syringe) 0.5 mg IVPUSH Q3H PRN PRN Reason: Pain (severe 7-10) Piperacillin Sod/Tazobactam (Sod 4.5 gm/ Sodium Chloride) 100 mls @ 25 mls/hr IV Q8H [facility] Last Admin: 05/25/20 02:52 Dose: 25 mls/hr Documented by: Loratadine (Loratadine 10 Mg Tab) 10 mg PO BEDTIME [facility] Last Admin: 05/24/20 21:41 Dose: 10 mg Documented by: Melatonin (Melatonin 3 Mg Tab) 9 mg PO BEDTIME [facility] Last Admin: 05/24/20 21:40 Dose: 9 mg Documented by: Ondansetron HCl (Ondansetron 4 Mg/2 Ml Sdv) 4 mg IVPUSH Q6H PRN PRN Reason: Nausea/Vomiting Last Admin: 05/25/20 02:52 Dose: 4 mg Documented by: Sodium Chloride (Sodium Chloride 0.9% 10 Ml Syringe) 10 ml FLUSH ASDIRECTED PRN PRN Reason: Keep Vein Open Last Admin: 05/22/20 21:55 Dose: 10 ml Documented by: Sodium Phosphate (Phosphorus #1 250 Mg Tab) 250 mg PO QID [facility] Last Admin: 05/25/20 08:00 Dose: 250 mg Documented by: Discontinued Medications Albuterol/Ipratropium (Albuterol/Ipratropium 3.0-0.5 Mg/3 Ml Neb Soln) 3 ml NEB ONETIME STA Stop: 05/23/20 15:13 Last Admin: 05/23/20 15:21 Dose: 3 ml Documented by: Albuterol/Ipratropium (Albuterol/Ipratropium 3.0-0.5 Mg/3 Ml Neb Soln) Confirm Administered Dose 3 ml .ROUTE .STK-MED ONE Stop: 05/23/20 15:18 Last Admin: 05/23/20 15:21 Dose: Not Given Documented by: Bupivacaine HCl/Epinephrine Bitart (Bupivacaine 0.5%/Epinephrine 1:200,000 50 Ml Mdv) Confirm Administered Dose 50 ml .ROUTE .STK-MED ONE Stop: 05/23/20 11:41 Last Admin: 05/23/20 13:28 Dose: 24 ml Documented by: Fentanyl (Fentanyl 250 Mcg/5 Ml Sdv) Confirm Administered Dose 250 mcg .ROUTE .STK-MED ONE Stop: 05/23/20 11:33 Fentanyl (Fentanyl 100 Mcg/2 Ml Sdv) 100 mcg IVPUSH ONETIME PRN PRN Reason: Pain Stop: 05/23/20 17:00 Hydromorphone HCl (Hydromorphone 0.5 Mg/0.5 Ml Syringe) 0.5 mg IVPUSH ONETIME ONE Stop: 05/22/20 18:03 Last Admin: 05/22/20 18:30 Dose: 0.5 mg Documented by: Hydromorphone HCl (Hydromorphone 0.5 Mg/0.5 Ml Syringe) 0.5 mg IVPUSH ONETIME ONE Stop: 05/22/20 21:10 Last Admin: 05/22/20 21:14 Dose: 0.5 mg Documented by: Hydromorphone HCl (Hydromorphone 0.5 Mg/0.5 Ml Syringe) 0.5 mg IVPUSH ONETIME ONE Stop: 05/22/20 22:37 Last Admin: 05/22/20 22:40 Dose: 0.5 mg Documented by: Hydromorphone HCl (Hydromorphone 0.5 Mg/0.5 Ml Syringe) 0.5 mg IVPUSH Q2H PRN PRN Reason: Pain Last Admin: 05/23/20 12:24 Dose: 0.5 mg Documented by: Hydromorphone HCl (Hydromorphone 0.5 Mg/0.5 Ml Syringe) Confirm Administered Dose 0.5 mg .ROUTE .STK-MED ONE Stop: 05/23/20 13:33 Hydromorphone HCl (Hydromorphone 0.5 Mg/0.5 Ml Syringe) 0.5 mg IVPUSH ONETIME PRN PRN Reason: Pain (severe 7-10) Stop: 05/23/20 17:00 Sodium Chloride (Normal Saline) 1,000 mls @ 150 mls/hr IV NOW STA Stop: 05/23/20 00:41 Last Admin: 05/22/20 18:32 Dose: 150 mls/hr Documented by: Ertapenem 1 gm/ Sodium (Chloride) 50 mls @ 100 mls/hr IV ONETIME ONE Stop: 05/22/20 22:47 Last Admin: 05/22/20 22:35 Dose: 100 mls/hr Documented by: Lactated Ringer's (Ringers, Lactated) 1,000 mls @ 100 mls/hr IV ASDIRECTED [facility] Last Admin: 05/23/20 10:15 Dose: 100 mls/hr Documented by: Lidocaine HCl (Xylocaine-Mpf 1%) Confirm Administered Dose 4 mls @ as directed .ROUTE .STK-MED ONE Stop: 05/23/20 11:33 Cefoxitin Sodium 2 gm/ Premix 50 mls @ 100 mls/hr IV ONETIME ONE Stop: 05/23/20 13:25 Last Admin: 05/23/20 17:21 Dose: Not Given Documented by: Lactated Ringer's (Ringers, Lactated) Confirm Administered Dose 1,000 mls @ as directed .ROUTE .STK-MED ONE Stop: 05/23/20 13:24 Sodium Chloride (Normal Saline) 1,000 mls @ 125 mls/hr IV ASDIRECTED [facility] Last Admin: 05/24/20 09:21 Dose: 125 mls/hr Documented by: Ertapenem 1 gm/ Sodium (Chloride) 50 mls @ 100 mls/hr IV Q24H [facility] Last Admin: 05/23/20 21:56 Dose: 100 mls/hr Documented by: Cefoxitin Sodium (Mefoxin In Dextrose,Iso-Osm 2 Gm/50 Ml) Confirm Administered Dose 50 mls @ as directed .ROUTE .STK-MED ONE Stop: 05/23/20 15:21 Piperacillin Sod/Tazobactam (Sod 4.5 gm/ Sodium Chloride) 100 mls @ 200 mls/hr IV ONETIME ONE Stop: 05/24/20 11:29 Last Admin: 05/24/20 11:13 Dose: 200 mls/hr Documented by: Iopamidol (Iopamidol 612 Mg/Ml 100 Ml Bottle) 100 ml IVPUSH ONETIME ONE Stop: 05/22/20 21:56 Last Admin: 05/22/20 21:55 Dose: 100 ml Documented by: Midazolam HCl (Midazolam 1 Mg/Ml 2 Ml Sdv) Confirm Administered Dose 4 mg .ROUTE .STK-MED ONE Stop: 05/23/20 11:33 Miscellaneous Medication (Phenylephrine Hcl In 0.9% Nacl 1 Mg/10 Ml Syringe) Confirm Administered Dose 1 mg .ROUTE .STK-MED ONE Stop: 05/23/20 13:31 Ondansetron HCl (Ondansetron 4 Mg/2 Ml Sdv) 4 mg IVPUSH ONETIME ONE Stop: 05/22/20 18:03 Last Admin: 05/22/20 18:26 Dose: 4 mg Documented by: Ondansetron HCl (Ondansetron 4 Mg/2 Ml Sdv) 4 mg IVPUSH Q6H PRN PRN Reason: Nausea Last Admin: 05/23/20 04:34 Dose: 4 mg Documented by: Ondansetron HCl (Ondansetron 4 Mg/2 Ml Sdv) Confirm Administered Dose 8 mg .ROUTE .STK-MED ONE Stop: 05/23/20 14:28 Propofol (Propofol 200 Mg/20 Ml Sdv) Confirm Administered Dose 200 mg .ROUTE .STK-MED ONE Stop: 05/23/20 11:32 Rocuronium [place] (Rocuronium 50 Mg/5 Ml Vial) Confirm Administered Dose 50 mg .ROUTE .STK-MED ONE Stop: 05/23/20 11:34 Sugammadex Sodium (Sugammadex Sodium 500 Mg/5 Ml Vial) Confirm Administered Dose 500 mg .ROUTE .STK-MED ONE Stop: 05/23/20 14:32 - Exam General: Alert, Oriented, Cooperative Lungs: Normal Respiratory Effort Cardiovascular: Regular Rate, Regular Rhythm GI/Abdominal Exam: Soft, No Distention, No Abnormal Bruit, Tender (lower abdomen) Wound/Incisions: Healing Well, Dressing Dry and Intact, No Drainage - Patient Data Lab Results Last 24 hrs: Laboratory Results - last 24 hr 05/25/20 05/25/20 Range/Units 05:32 05:32 WBC 13.02 H (3.98-10.04) K/mm3 RBC 3.75 L (3.98-5.22) M/mm3 Hgb 10.6 L (11.2-15.7) gm/dl Hct 32.4 L (34.1-44.9) % MCV 86.4 (79.4-94.8) fl MCH 28.3 (25.6-32.2) pg MCHC 32.7 (32.2-35.5) g/dl RDW Std Deviation 42.5 (36.4-46.3) fL Plt Count 231 (182-369) K/mm3 MPV 9.1 L (9.4-12.3) fl Neut % (Auto) 78.6 H (34.0-71.1) % Lymph % (Auto) 13.6 L (19.3-51.7) % [place] % (Auto) 6.9 (4.7-12.5) % Eos % (Auto) 0.5 L (0.7-5.8) Baso % (Auto) 0.1 (0.1-1.2) % Neut # (Auto) 10.24 H (1.56-6.13) K/mm3 Lymph # (Auto) 1.77 (1.18-3.74) K/mm3 [place] # (Auto) 0.90 H (0.24-0.36) K/mm3 Eos # (Auto) 0.06 (0.04-0.36) K/mm3 Baso # (Auto) 0.01 (0.01-0.08) K/mm3 Sodium 144 (136-145) mEq/L Potassium 3.5 (3.5-5.1) mEq/L Chloride 109 H (98-107) mEq/L Carbon Dioxide 24 (21-32) mEq/L Anion Gap 14.5 (5-15) BUN 15 (7-18) mg/dL Creatinine 0.9 (0.55-1.02) mg/dL Est Cr Clr Drug Dosing 94.12 mL/min Estimated GFR (MDRD) > 60 (>60) mL/min BUN/Creatinine Ratio 16.7 (14-18) Glucose 108 H (74-106) mg/dL Calcium 8.2 L (8.5-10.1) mg/dL Phosphorus 3.1 (2.6-4.7) mg/dL Magnesium 1.7 L (1.8-2.4) mg/dl Result Diagrams: 05/25/20 05:32 05/25/20 05:32 Sepsis Event Note - Evaluation Sepsis Screening Result: No Definite Risk - Focused Exam Vital Signs: Vital Signs Temp Pulse Resp BP Pulse Ox 05/25/20 07:56 98.6 F 81 14 109/64 100 05/25/20 02:50 98.4 F 64 13 106/62 99 - Problem List Review Problem List Initiated/Reviewed/Updated: No - My Orders Last 24 Hours: My Active Orders 05/24/20 Lunch Regular Diet [DIET] 05/24/20 13:00 Phosphorus #1 [Neutra-Phos] 250 mg PO QID 05/24/20 19:00 Piperacillin/Tazobactam [Piperacil-Tazobact] 4.5 gm Sodium Chloride 0.9% [Normal Saline] 100 ml IV Q8H 05/25/20 11:03 Ready for Discharge [RC] PER UNIT ROUTINE 05/26/20 05:11 BASIC METABOLIC PANEL,BMP [CHEM] AM CBC WITH AUTO DIFF [HEME] AM MAGNESIUM [CHEM] AM PHOSPHORUS [CHEM] AM - Assessment Assessment:: POD2 diagnostic laparoscopy and appendectomy. Progressing well. - Plan Plan:: - generally feeling better. Had diarrhea but tolerating diet. Her WBC has come down to 13 from 20 yesterday. - pain is fairly well controlled - on RA. ambulated yesterday. - Plan is to discharge her to home today - Patient and her father are both ok with this plan.
--- NOTE | 2020-05-25 11:24 | PCM.DCSUM1 ---
Discharge Summary - Hospital Course Free Text/Narrative:: The patient presented with acute lower abdominal pain, nausea and vomiting. She was found to have findings of appendicitis and possible ovarian cyst rupture. 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 Acute perforated appendicitis was found along with a ruptured luteal cyst. Appendectomy was performed and luteal cyst was examined and found to be non-bleeding therefore left in place. Patient progressed well and discharged in stable condition. She will take PO antibiotics x 5 more days. Diagnosis: Stroke: No - Discharge Data Discharge Date: 05/25/20 Discharge Disposition: Home, Self-Care 01 Condition: Good - Referral to Home Health Primary Care Physician: KATIE Marks - Patient Summary/Data Operative Procedure(s) Performed: Laparoscopic appendectomy with Dr. Gavin. Evaluation of the pelvic organs by Dr. Verde Consults: Consultations 05/23/20 12:56 Consult to Physician [CONS] Stat - Patient Instructions Diet: Heart Healthy Diet Activity: As Tolerated, No Lifting Over 20 Pounds (for 2 weeks) Driving: Do Not Drive (until not taking opioid pain medications for 24 hours) Showering/Bathing: May Shower, No Tub Bathing/Swimming Wound/Incision Care: Keep Operative Site/Wound Site Clean and Dry Notify Provider of: Fever, Increased Pain, Swelling and Redness, Nausea and/or Vomiting Other/Special Instructions: - Take Tylenol or Ibuprofen for pain. If pain becomes severe, take the prescribed opioid pain medication. - Discharge Plan *PRESCRIPTION DRUG MONITORING PROGRAM REVIEWED*: No *COPY OF PRESCRIPTION DRUG MONITORING REPORT IN PATIENT MALIK: No Prescriptions/Med Rec: Amoxicillin/Potassium Clav [Augmentin 875-125 Tablet] 1 each PO Q12H 5 Days #10 tablet Docusate Sodium [Colace] 100 mg PO BID 14 Days #28 cap oxyCODONE 5 mg PO Q6H 3 Days #12 tab Home Medications: Home Meds Escitalopram [Lexapro] 20 mg PO BEDTIME 03/25/20 [History] Melatonin 10 mg PO BEDTIME 03/25/20 [History] Cetirizine HCl [Zyrtec] 10 mg PO BEDTIME 05/22/20 [History] Amoxicillin/Potassium Clav [Augmentin 875-125 Tablet] 1 each PO Q12H 5 Days #10 tablet 05/25/20 [Rx] Docusate Sodium [Colace] 100 mg PO BID 14 Days #28 cap 05/25/20 [Rx] oxyCODONE 5 mg PO Q6H 3 Days #12 tab 05/25/20 [Rx] Oxygen Therapy Mode: Room Air Patient Handouts: Sepsis, Self Care, Adult Forms: ED Department Discharge Referrals: Cookie Butler PA-C [Primary Care Provider] - (Follow up with Dr. Gavin in 2 weeks.) - Discharge Summary/Plan Comment DC Time >30 min.: Yes - General Info Date of Service: 05/25/20 Admission Dx/Problem (Free Text: Admission Diagnosis/Problem Admission Diagnosis/Problem Appendicitis Subjective Update: had some nausea at night but no vomiting. otherwise tolerated diet. Had a bout of bad diarrhea overnight. Functional Status: Reports: Pain Controlled, Tolerating Diet, Ambulating, Urinating - Review of Systems General: Reports: No Symptoms HEENT: Reports: No Symptoms Pulmonary: Reports: No Symptoms Cardiovascular: Reports: No Symptoms Gastrointestinal: Reports: Abdominal Pain (post op) Genitourinary: Reports: No Symptoms Musculoskeletal: Reports: No Symptoms Skin: Reports: No Symptoms Neurological: Reports: No Symptoms Psychiatric: Reports: No Symptoms - Patient Data Vitals - Most Recent: Last Vital Signs Temp 98.6 F 05/25/20 07:56 Pulse 81 05/25/20 07:56 Resp 14 05/25/20 07:56 BP 109/64 05/25/20 07:56 Pulse Ox 100 05/25/20 07:56 Weight - Most Recent: 68.447 kg I&O - Last 24 hours: Intake & Output 05/24/20 05/25/20 05/25/20 22:59 06:59 14:59 Intake Total 1370 1000 Output Total 750 625 Balance 620 375 Lab Results - Last 24 hrs: Laboratory Results - last 24 hr 05/25/20 05/25/20 Range/Units 05:32 05:32 WBC 13.02 H (3.98-10.04) K/mm3 RBC 3.75 L (3.98-5.22) M/mm3 Hgb 10.6 L (11.2-15.7) gm/dl Hct 32.4 L (34.1-44.9) % MCV 86.4 (79.4-94.8) fl MCH 28.3 (25.6-32.2) pg MCHC 32.7 (32.2-35.5) g/dl RDW Std Deviation 42.5 (36.4-46.3) fL Plt Count 231 (182-369) K/mm3 MPV 9.1 L (9.4-12.3) fl Neut % (Auto) 78.6 H (34.0-71.1) % Lymph % (Auto) 13.6 L (19.3-51.7) % [place] % (Auto) 6.9 (4.7-12.5) % Eos % (Auto) 0.5 L (0.7-5.8) Baso % (Auto) 0.1 (0.1-1.2) % Neut # (Auto) 10.24 H (1.56-6.13) K/mm3 Lymph # (Auto) 1.77 (1.18-3.74) K/mm3 [place] # (Auto) 0.90 H (0.24-0.36) K/mm3 Eos # (Auto) 0.06 (0.04-0.36) K/mm3 Baso # (Auto) 0.01 (0.01-0.08) K/mm3 Sodium 144 (136-145) mEq/L Potassium 3.5 (3.5-5.1) mEq/L Chloride 109 H (98-107) mEq/L Carbon Dioxide 24 (21-32) mEq/L Anion Gap 14.5 (5-15) BUN 15 (7-18) mg/dL Creatinine 0.9 (0.55-1.02) mg/dL Est Cr Clr Drug Dosing 94.12 mL/min Estimated GFR (MDRD) > 60 (>60) mL/min BUN/Creatinine Ratio 16.7 (14-18) Glucose 108 H (74-106) mg/dL Calcium 8.2 L (8.5-10.1) mg/dL Phosphorus 3.1 (2.6-4.7) mg/dL Magnesium 1.7 L (1.8-2.4) mg/dl Med Orders - Current: Current Medications Hydrocodone Bitart/Acetaminophen (Acetaminophen/Hydrocodone 325-5 Mg Tab) 1 tab PO Q4H PRN PRN Reason: Pain (moderate 4-6) Last Admin: 05/24/20 21:41 Dose: 1 tab Documented by: Citalopram Hydrobromide (Citalopram 20 Mg Tab) 40 mg PO BEDTIME [facility] Last Admin: 05/24/20 21:40 Dose: 40 mg Documented by: Docusate Sodium (Docusate Sodium 100 Mg Cap) 100 mg PO BID PRN PRN Reason: Constipation Hydromorphone HCl (Hydromorphone 0.5 Mg/0.5 Ml Syringe) 0.5 mg IVPUSH Q3H PRN PRN Reason: Pain (severe 7-10) Piperacillin Sod/Tazobactam (Sod 4.5 gm/ Sodium Chloride) 100 mls @ 25 mls/hr IV Q8H [facility] Last Admin: 05/25/20 02:52 Dose: 25 mls/hr Documented by: Loratadine (Loratadine 10 Mg Tab) 10 mg PO BEDTIME [facility] Last Admin: 05/24/20 21:41 Dose: 10 mg Documented by: Melatonin (Melatonin 3 Mg Tab) 9 mg PO BEDTIME [facility] Last Admin: 05/24/20 21:40 Dose: 9 mg Documented by: Ondansetron HCl (Ondansetron 4 Mg/2 Ml Sdv) 4 mg IVPUSH Q6H PRN PRN Reason: Nausea/Vomiting Last Admin: 05/25/20 02:52 Dose: 4 mg Documented by: Sodium Chloride (Sodium Chloride 0.9% 10 Ml Syringe) 10 ml FLUSH ASDIRECTED PRN PRN Reason: Keep Vein Open Last Admin: 05/22/20 21:55 Dose: 10 ml Documented by: Sodium Phosphate (Phosphorus #1 250 Mg Tab) 250 mg PO QID [facility] Last Admin: 05/25/20 08:00 Dose: 250 mg Documented by: Discontinued Medications Albuterol/Ipratropium (Albuterol/Ipratropium 3.0-0.5 Mg/3 Ml Neb Soln) 3 ml NEB ONETIME STA Stop: 05/23/20 15:13 Last Admin: 05/23/20 15:21 Dose: 3 ml Documented by: Albuterol/Ipratropium (Albuterol/Ipratropium 3.0-0.5 Mg/3 Ml Neb Soln) Confirm Administered Dose 3 ml .ROUTE .STK-MED ONE Stop: 05/23/20 15:18 Last Admin: 05/23/20 15:21 Dose: Not Given Documented by: Bupivacaine HCl/Epinephrine Bitart (Bupivacaine 0.5%/Epinephrine 1:200,000 50 Ml Mdv) Confirm Administered Dose 50 ml .ROUTE .STK-MED ONE Stop: 05/23/20 11:41 Last Admin: 05/23/20 13:28 Dose: 24 ml Documented by: Fentanyl (Fentanyl 250 Mcg/5 Ml Sdv) Confirm Administered Dose 250 mcg .ROUTE .STK-MED ONE Stop: 05/23/20 11:33 Fentanyl (Fentanyl 100 Mcg/2 Ml Sdv) 100 mcg IVPUSH ONETIME PRN PRN Reason: Pain Stop: 05/23/20 17:00 Hydromorphone HCl (Hydromorphone 0.5 Mg/0.5 Ml Syringe) 0.5 mg IVPUSH ONETIME ONE Stop: 05/22/20 18:03 Last Admin: 05/22/20 18:30 Dose: 0.5 mg Documented by: Hydromorphone HCl (Hydromorphone 0.5 Mg/0.5 Ml Syringe) 0.5 mg IVPUSH ONETIME ONE Stop: 05/22/20 21:10 Last Admin: 05/22/20 21:14 Dose: 0.5 mg Documented by: Hydromorphone HCl (Hydromorphone 0.5 Mg/0.5 Ml Syringe) 0.5 mg IVPUSH ONETIME ONE Stop: 05/22/20 22:37 Last Admin: 05/22/20 22:40 Dose: 0.5 mg Documented by: Hydromorphone HCl (Hydromorphone 0.5 Mg/0.5 Ml Syringe) 0.5 mg IVPUSH Q2H PRN PRN Reason: Pain Last Admin: 05/23/20 12:24 Dose: 0.5 mg Documented by: Hydromorphone HCl (Hydromorphone 0.5 Mg/0.5 Ml Syringe) Confirm Administered Dose 0.5 mg .ROUTE .STK-MED ONE Stop: 05/23/20 13:33 Hydromorphone HCl (Hydromorphone 0.5 Mg/0.5 Ml Syringe) 0.5 mg IVPUSH ONETIME P RN PRN Reason: Pain (severe 7-10) Stop: 05/23/20 17:00 Sodium Chloride (Normal Saline) 1,000 mls @ 150 mls/hr IV NOW STA Stop: 05/23/20 00:41 Last Admin: 05/22/20 18:32 Dose: 150 mls/hr Documented by: Ertapenem 1 gm/ Sodium (Chloride) 50 mls @ 100 mls/hr IV ONETIME ONE Stop: 05/22/20 22:47 Last Admin: 05/22/20 22:35 Dose: 100 mls/hr Documented by: Lactated Ringer's (Ringers, Lactated) 1,000 mls @ 100 mls/hr IV ASDIRECTED [facility] Last Admin: 05/23/20 10:15 Dose: 100 mls/hr Documented by: Lidocaine HCl (Xylocaine-Mpf 1%) Confirm Administered Dose 4 mls @ as directed .ROUTE .STK-MED ONE Stop: 05/23/20 11:33 Cefoxitin Sodium 2 gm/ Premix 50 mls @ 100 mls/hr IV ONETIME ONE Stop: 05/23/20 13:25 Last Admin: 05/23/20 17:21 Dose: Not Given Documented by: Lactated Ringer's (Ringers, Lactated) Confirm Administered Dose 1,000 mls @ as directed .ROUTE .STK-MED ONE Stop: 05/23/20 13:24 Sodium Chloride (Normal Saline) 1,000 mls @ 125 mls/hr IV ASDIRECTED [facility] Last Admin: 05/24/20 09:21 Dose: 125 mls/hr Documented by: Ertapenem 1 gm/ Sodium (Chloride) 50 mls @ 100 mls/hr IV Q24H [facility] Last Admin: 05/23/20 21:56 Dose: 100 mls/hr Documented by: Cefoxitin Sodium (Mefoxin In Dextrose,Iso-Osm 2 Gm/50 Ml) Confirm Administered Dose 50 mls @ as directed .ROUTE .STK-MED ONE Stop: 05/23/20 15:21 Piperacillin Sod/Tazobactam (Sod 4.5 gm/ Sodium Chloride) 100 mls @ 200 mls/hr IV ONETIME ONE Stop: 05/24/20 11:29 Last Admin: 05/24/20 11:13 Dose: 200 mls/hr Documented by: Iopamidol (Iopamidol 612 Mg/Ml 100 Ml Bottle) 100 ml IVPUSH ONETIME ONE Stop: 05/22/20 21:56 Last Admin: 05/22/20 21:55 Dose: 100 ml Documented by: Midazolam HCl (Midazolam 1 Mg/Ml 2 Ml Sdv) Confirm Administered Dose 4 mg .ROUTE .STK-MED ONE Stop: 05/23/20 11:33 Miscellaneous Medication (Phenylephrine Hcl In 0.9% Nacl 1 Mg/10 Ml Syringe) Confirm Administered Dose 1 mg .ROUTE .STK-MED ONE Stop: 05/23/20 13:31 Ondansetron HCl (Ondansetron 4 Mg/2 Ml Sdv) 4 mg IVPUSH ONETIME ONE Stop: 05/22/20 18:03 Last Admin: 05/22/20 18:26 Dose: 4 mg Documented by: Ondansetron HCl (Ondansetron 4 Mg/2 Ml Sdv) 4 mg IVPUSH Q6H PRN PRN Reason: Nausea Last Admin: 05/23/20 04:34 Dose: 4 mg Documented by: Ondansetron HCl (Ondansetron 4 Mg/2 Ml Sdv) Confirm Administered Dose 8 mg .ROUTE .STK-MED ONE Stop: 05/23/20 14:28 Propofol (Propofol 200 Mg/20 Ml Sdv) Confirm Administered Dose 200 mg .ROUTE .STK-MED ONE Stop: 05/23/20 11:32 Rocuronium [place] (Rocuronium 50 Mg/5 Ml Vial) Confirm Administered Dose 50 mg .ROUTE .STK-MED ONE Stop: 05/23/20 11:34 Sugammadex Sodium (Sugammadex Sodium 500 Mg/5 Ml Vial) Confirm Administered Dose 500 mg .ROUTE .STK-MED ONE Stop: 05/23/20 14:32 - Exam General: Reports: Alert, Oriented, Cooperative Lungs: Reports: Clear to Auscultation, Normal Respiratory Effort Cardiovascular: Reports: Regular Rate, Regular Rhythm GI/Abdominal Exam: Soft, Tender (lower abdomen and krystin-incisional)
== END 2020-05-25 13:37 | disposition home or self-care (01) | DRG 233 ==
LOC: JD.ED 17:36 → JD.MS 22:37 → OBSVTOIN 05-23 18:06
PROVIDERS: ADMIT Surgery; ATTEND Surgery
PROC: 0DTJ4ZZ Resection of Appendix, Percutaneous Endoscopic Approach (ICD-10-PCS; principal; 2020-05-23)
DX: K35.32 Acute appendicitis with perforation, localized peritonitis, and gangrene, without abscess (principal); N83.12 Corpus luteum cyst of left ovary; N83.11 Corpus luteum cyst of right ovary; Z79.899 Other long term (current) drug therapy; F41.9 Anxiety disorder, unspecified; F32.9 Major depressive disorder, single episode, unspecified; J30.9 Allergic rhinitis, unspecified; Z20.822 Contact with and (suspected) exposure to COVID-19
CPT/HCPCS: 00840; 36415; 74177; 74177-26; 76856; 76856-26; 80048; 80053; 83735; 84100; 84703; 85025; 86140; 94760; 96365; 96375; 96376; 99284; 99285-25; A9270-GY; G0378; J0330; J0694; J1170; J1335; J2250; J2370; J2405; J2543; J2704; J3010; J3490; J7030; J7120; J7620-GY; Q9967; U0002

== ENCOUNTER 2020-06-14 15:26 | Emergency (ER) | payer BC ==
[2020-06-14] MEDS ORDERED: Ondansetron 4 MG/2 ML SDV IVPUSH ONE (15:49)
[2020-06-14] MEDS ORDERED: Sodium Chloride 0.9% 10 ML Syringe FLUSH PRN (15:49)
[2020-06-14] MEDS ORDERED: Sodium Chloride 0.9% 1,000 ML IV STA (15:49)
--- NOTE | 2020-06-14 16:03 | EDM.PDOC ---
ED HPI GENERAL MEDICAL PROBLEM - General Chief Complaint: Gastrointestinal Problem Stated Complaint: ABDOMINAL ABCESS Time Seen by Provider: 06/14/20 15:36 Source of Information: Reports: Patient History Limitations: Reports: No Limitations - History of Present Illness INITIAL COMMENTS - FREE TEXT/NARRATIVE: The patient presents for nausea, generalized weakness and an abscess in her abdomen. The patient had an appendectomy by Dr Gavin on 05/23/20. She was going good until 1 week ago. She started having nausea, dizziness, and generalized weakness. She does not have an appetite. She says when she gets up she says her vision goes dark and she nearly passes out. She has some abdominal pain that comes and goes. She has no measured fever. She does have some chills. She has no dysuria. Onset: Gradual Duration: Week(s): Location: Reports: Abdomen Quality: Reports: Sharp Severity: Mild Improves with: Reports: None Worsens with: Reports: None Associated Symptoms: Reports: Fever/Chills, Nausea/Vomiting. Denies: Chest Pain, Cough, Headaches, Shortness of Breath - Related Data Allergies Allergy/AdvReac Type Severity Reaction Status Date / Time No Known Allergies Allergy Verified 05/22/20 17:48 Home Meds: Home Meds Escitalopram [Lexapro] 20 mg PO BEDTIME 03/25/20 [History] Melatonin 10 mg PO BEDTIME 03/25/20 [History] Cetirizine HCl [Zyrtec] 10 mg PO BEDTIME 05/22/20 [History] levoFLOXacin [Levaquin] 750 mg PO DAILY 06/14/20 [History] metroNIDAZOLE [Flagyl] 500 mg PO TID 06/14/20 [History] Past Medical History HEENT History: Reports: Allergic Rhinitis Cardiovascular History: Reports: None Respiratory History: Reports: None Genitourinary History: Reports: Other (See Below) Other Genitourinary History: pelvic abscess Musculoskeletal History: Reports: None Psychiatric History: Reports: Anxiety, Depression Endocrine/Metabolic History: Reports: None Oncologic (Cancer) History: Reports: None - Past Surgical History HEENT Surgical History: Reports: Oral Surgery, Other (See Below) Other HEENT Surgeries/Procedures: [place] teeth removed 03/27 GI Surgical History: Reports: Appendectomy Other GI Surgeries/Procedures: 05/23/20 Social & Family History - Family History Family Medical History: No Pertinent Family History - Tobacco Use Tobacco Use Status *Q: Never Tobacco User Second Hand Smoke Exposure: No - Caffeine Use Caffeine Use: Reports: None - Recreational Drug Use Recreational Drug Use: No - Living Situation & Occupation Living situation: Reports: with Family Occupation: Student (10th grade) ED ROS GENERAL - Review of Systems Review Of Systems: See Below Constitutional: Reports: Chills, Malaise, Weakness, Fatigue. Denies: Fever HEENT: Reports: No Symptoms Respiratory: Reports: No Symptoms Cardiovascular: Reports: No Symptoms Endocrine: Reports: No Symptoms GI/Abdominal: Reports: Abdominal Pain, Nausea. Denies: Vomiting : Reports: No Symptoms Musculoskeletal: Reports: No Symptoms Skin: Reports: No Symptoms Neurological: Reports: No Symptoms ED EXAM, GI/ABD - Physical Exam Exam: See Below Exam Limited By: No Limitations General Appearance: Alert, No Apparent Distress Ears: Normal External Exam Nose: Normal Inspection Head: Atraumatic, Normocephalic Neck: Normal Inspection Respiratory/Chest: No Respiratory Distress, Lungs Clear, Normal Breath Sounds Cardiovascular: Regular Rate, Rhythm, No Edema, No Murmur GI/Abdominal Exam: Soft, No Organomegaly, No Mass, Tender (Mild to the lower abdomen) Course - Vital Signs Last Recorded V/S: Last Vital Signs Temp 97.8 F 06/14/20 15:35 Pulse 74 06/14/20 15:35 Resp 16 06/14/20 15:35 BP 102/68 06/14/20 15:35 Pulse Ox 99 06/14/20 15:35 - Orders/Labs/Meds Orders: Active Orders 24 hr Category Date Time Status Peripheral IV Care [RC] . DIRECTED Care 06/14/20 15:49 Active Pelvis Non OB Ltd [US] Stat Exams 06/14/20 16:31 Taken Sodium Chloride 0.9% [Saline Flush] Med 06/14/20 15:49 Active 10 ml FLUSH ASDIRECTED PRN ED Antiemetic Medication Reflex [OM.PC] Stat Oth 06/14/20 15:49 Ordered Peripheral IV Insertion Adult [OM.PC] Stat Oth 06/14/20 15:49 Ordered Medication Orders Sodium Chloride (Sodium Chloride 0.9% 10 Ml Syringe) 10 ml FLUSH ASDIRECTED PRN PRN Reason: Keep Vein Open Last Admin: 06/14/20 16:08 Dose: 10 ml Documented by: JUNE Labs: Laboratory Tests 06/14/20 06/14/20 06/14/20 Range/Units 16:00 16:00 16:00 WBC 8.29 (3.98-10.04) K/mm3 RBC 4.44 (3.98-5.22) M/mm3 Hgb 12.2 D (11.2-15.7) gm/dl Hct 37.5 (34.1-44.9) % MCV 84.5 (79.4-94.8) fl MCH 27.5 (25.6-32.2) pg MCHC 32.5 (32.2-35.5) g/dl RDW Std Deviation 39.7 (36.4-46.3) fL Plt Count 421 H D (182-369) K/mm3 MPV 8.4 L (9.4-12.3) fl Neut % (Auto) 63.7 (34.0-71.1) % Lymph % (Auto) 21.6 (19.3-51.7) % [place] % (Auto) 11.0 (4.7-12.5) % Eos % (Auto) 2.9 (0.7-5.8) Baso % (Auto) 0.6 (0.1-1.2) % Neut # (Auto) 5.28 (1.56-6.13) K/mm3 Lymph # (Auto) 1.79 (1.18-3.74) K/mm3 [place] # (Auto) 0.91 H (0.24-0.36) K/mm3 Eos # (Auto) 0.24 (0.04-0.36) K/mm3 Baso # (Auto) 0.05 (0.01-0.08) K/mm3 Sodium 140 (136-145) mEq/L Potassium 4.1 (3.5-5.1) mEq/L Chloride 103 (98-107) mEq/L Carbon Dioxide 29 (21-32) mEq/L Anion Gap 12.1 (5-15) BUN 14 (7-18) mg/dL Creatinine 0.8 (0.55-1.02) mg/dL Est Cr Clr Drug Dosing TNP Estimated GFR (MDRD) > 60 (>60) mL/min BUN/Creatinine Ratio 17.5 (14-18) Glucose 98 (74-106) mg/dL Calcium 8.9 (8.5-10.1) mg/dL Magnesium 2.0 (1.8-2.4) mg/dl Total Bilirubin 0.3 (0.2-1.0) mg/dL AST 17 (15-37) U/L ALT 29 (14-59) U/L Alkaline Phosphatase 76 (46-116) U/L C-Reactive Protein (<1.0) mg/dL Total Protein 7.6 (6.4-8.2) g/dl Albumin 3.4 (3.4-5.0) g/dl Globulin 4.2 gm/dL Albumin/Globulin Ratio 0.8 L (1-2) Lipase 66 L (73-393) U/L HCG, Qual Negative (NEGATIVE) Urine Color (Yellow) Urine Appearance (Clear) Urine pH (5.0-8.0) Ur Specific [place] (1.005-1.030) Urine Protein (Negative) Urine Glucose (UA) (Negative) Urine Ketones (Negative) Urine Occult Blood (Negative) Urine Nitrite (Negative) Urine Bilirubin (Negative) Urine Urobilinogen (0.2-1.0) Ur Leukocyte Esterase (Negative) Urine RBC (0-5) /hpf Urine WBC (0-5) /hpf Ur Squamous Epith Cells (0-5) /hpf Urine Bacteria (FEW) /hpf Urine Mucus (FEW) /hpf 06/14/20 06/14/20 Range/Units 16:00 17:25 WBC (3.98-10.04) K/mm3 RBC (3.98-5.22) M/mm3 Hgb (11.2-15.7) gm/dl Hct (34.1-44.9) % MCV (79.4-94.8) fl MCH (25.6-32.2) pg MCHC (32.2-35.5) g/dl RDW Std Deviation (36.4-46.3) fL Plt Count (182-369) K/mm3 MPV (9.4-12.3) fl Neut % (Auto) (34.0-71.1) % Lymph % (Auto) (19.3-51.7) % [place] % (Auto) (4.7-12.5) % Eos % (Auto) (0.7-5.8) Baso % (Auto) (0.1-1.2) % Neut # (Auto) (1.56-6.13) K/mm3 Lymph # (Auto) (1.18-3.74) K/mm3 [place] # (Auto) (0.24-0.36) K/mm3 Eos # (Auto) (0.04-0.36) K/mm3 Baso # (Auto) (0.01-0.08) K/mm3 Sodium (136-145) mEq/L Potassium (3.5-5.1) mEq/L Chloride (98-107) mEq/L Carbon Dioxide (21-32) mEq/L Anion Gap (5-15) BUN (7-18) mg/dL Creatinine (0.55-1.02) mg/dL Est Cr Clr Drug Dosing Estimated GFR (MDRD) (>60) mL/min BUN/Creatinine Ratio (14-18) Glucose (74-106) mg/dL Calcium (8.5-10.1) mg/dL Magnesium (1.8-2.4) mg/dl Total Bilirubin (0.2-1.0) mg/dL AST (15-37) U/L ALT (14-59) U/L Alkaline Phosphatase (46-116) U/L C-Reactive Protein 3.3 H* (<1.0) mg/dL Total Protein (6.4-8.2) g/dl Albumin (3.4-5.0) g/dl Globulin gm/dL Albumin/Globulin Ratio (1-2) Lipase (73-393) U/L HCG, Qual (NEGATIVE) Urine Color Yellow (Yellow) Urine Appearance Clear (Clear) Urine pH 7.0 (5.0-8.0) Ur Specific [place] 1.015 (1.005-1.030) Urine Protein Negative (Negative) Urine Glucose (UA) Negative (Negative) Urine Ketones Negative (Negative) Urine Occult Blood Negative (Negative) Urine Nitrite Negative (Negative) Urine Bilirubin Negative (Negative) Urine Urobilinogen 0.2 (0.2-1.0) Ur Leukocyte Esterase Negative (Negative) Urine RBC 0-5 (0-5) /hpf Urine WBC 0-5 (0-5) /hpf Ur Squamous Epith Cells 0-5 (0-5) /hpf Urine Bacteria Few (FEW) /hpf Urine Mucus Few (FEW) /hpf Meds: Medications Generic Name Dose Route Start Last Admin Trade Name Freq PRN Reason Stop Dose Admin Sodium Chloride 10 ml 06/14/20 15:49 06/14/20 16:08 Sodium Chloride 0.9% 10 Ml Syringe FLUSH 10 ml ASDIRECTED PRN Administration Keep Vein Open Discontinued Medications Generic Name Dose Route Start Last Admin Trade Name Freq PRN Reason Stop Dose Admin Sodium Chloride 1,000 mls @ 1,000 mls/hr 06/14/20 15:49 06/14/20 16:08 Normal Saline IV 06/14/20 16:48 1,000 mls/hr .BOLUS STA Administration Ondansetron HCl 4 mg 06/14/20 15:49 06/14/20 16:09 Ondansetron 4 Mg/2 Ml Sdv IVPUSH 06/14/20 15:50 4 mg ONETIME ONE Administration - Re-Assessments/Exams Free Text/Narrative Re-Assessment/Exam: 06/14/20 16:05 I ordered an IV NS 1L bolus, zofran 4mg IV, labs, and UA. I will try to get the CT report from [place]. 06/14/20 18:20 Her CBC looks good with a normal WBC. Her CMP also looks good. Her CRP was elevated at 3.3. Her HCG is negative. Her UA shows no UTI. I got the CT report from [place] and it shows peripherally enhancing cystic lesion or fluid collection in the central pelvis measures at least 36mm in length. A pelvis abscess or possibly a tubo-ovarian abscess should be considered. Consider pelvic US. I ordered a transabdominal US. She said the last time she had a transvaginal US it did not go well and she did not want another one. Her US shows a complex fluid collection in the cul-de-sac containg internal echoes and septations. This measures 3.7 X 4.6 X 3.1 cm. This could represent a hematoma. Abscess developing abscess is also possible. Indeterminate heterogeneous region in the superior right adnexa. This could represent inflammed bowel surrounded by fluid. Other types of abnormalities not excluded. Simple appearing cystic structure, left ovary. She feels a little better. I called Dr Cassidy our surgeon meter maintenance person. I will keep her on the antibiotics and have her take zofran and follow up with Dr Gavin. I sent the US to the [place] [facility] system. Departure - Departure Time of Disposition: 18:30 Disposition: Home, Self-Care 01 Condition: Good Clinical Impression: Abscess of female pelvis - Discharge Information *PRESCRIPTION DRUG MONITORING PROGRAM REVIEWED*: Not Applicable *COPY OF PRESCRIPTION DRUG MONITORING REPORT IN PATIENT MALIK: Not Applicable Referrals: Cookie Butler PA-C [Primary Care Provider] - Naya Gavin MD [Physician] - 3 Days Forms: ED Department Discharge Additional Instructions: Drink plenty of fluids. Take the antibiotics as prescribed. Take zofran every 6 hours as needed for nausea and vomiting. Follow up with Dr Gavin next week. Please return if you are worse. Sepsis Event Note (ED) - Evaluation Sepsis Screening Result: No Definite Risk - Focused Exam Vital Signs: Vital Signs Temp Pulse Resp BP Pulse Ox 06/14/20 15:35 97.8 F 74 16 102/68 99 - My Orders Last 24 Hours: My Active Orders 06/14/20 15:49 Peripheral IV Care [RC] . DIRECTED Sodium Chloride 0.9% [Saline Flush] 10 ml FLUSH ASDIRECTED PRN ED Antiemetic Medication Reflex [OM.PC] Stat Peripheral IV Insertion Adult [OM.PC] Stat 06/14/20 16:31 Pelvis Non OB Ltd [US] Stat - Assessment/Plan Last 24 Hours: My Active Orders 06/14/20 15:49 Peripheral IV Care [RC] . DIRECTED Sodium Chloride 0.9% [Saline Flush] 10 ml FLUSH ASDIRECTED PRN ED Antiemetic Medication Reflex [OM.PC] Stat Peripheral IV Insertion Adult [OM.PC] Stat 06/14/20 16:31 Pelvis Non OB Ltd [US] Stat
--- NOTE | 2020-06-15 11:37 | US ---
Pelvic ultrasound: Multiple real-time images were obtained of the pelvis transabdominally. Patient refused transvaginal scanning. Comparison: Prior pelvic ultrasound of 05/22/20. Comparison: Prior CT abdomen and pelvis study of 05/22/20. Uterus is anteverted. Endometrial thickness is normal at 4.1 mm. Complex fluid collection is seen within the cul-de-sac measuring 3.6 x 4.6 x 3.1 cm. Fluid is also noted within the right adnexa. Simple cyst is noted within the left ovary measuring 3.5 cm. No right ovarian abnormality is appreciated. Measurements: Right ovary: 4.1 x 2.1 x 2.4 cm Left ovary: 5.3 x 2.5 x 2.7 cm Uterus: Length 8.3 cm, AP height 3.6 cm, transverse width 5.3 cm Impression: 1. Complicated fluid collection as measured above within the cul-de-sac. This could represent hematoma or abscess. 2. Mild amount of free fluid within the right adnexa. 3. Small simple cyst within the left ovary. Diagnostic code #3 I agree with preliminary report from [facility] finalized on 06/14/20, 7:05 PM CDT
== END 2020-06-14 18:45 | disposition home or self-care (01) ==
LOC: JD.ED 15:26
DX: N73.9 Female pelvic inflammatory disease, unspecified (principal); Z79.899 Other long term (current) drug therapy
CPT/HCPCS: 36415; 76857; 80053; 81001; 83690; 83735; 84703; 85025; 86140; 96374; 99284; J2405; J7030

== ENCOUNTER 2020-08-18 17:56 | Emergency (ER) | payer BC ==
[2020-08-18] MEDS ORDERED: Sodium Chloride 0.9% 10 ML Syringe FLUSH PRN (18:40)
[2020-08-18] MEDS ORDERED: Sodium Chloride 0.9% 1,000 ML IV STA (19:07)
--- NOTE | 2020-08-18 20:01 | US ---
Pelvic ultrasound: Multiple real-time images were obtained transabdominally. Right and left ovaries are not visualized due to bowel gas. No adnexal abnormalities are otherwise seen. Uterus is not optimally seen. Uterus does not appear to be enlarged. Endometrial thickness is not well seen but measures approximately 8 mm. Measurements: Uterus: Length 9.9 cm, AP height 4.0 cm, transverse width 5.6 cm Impression: 1. Somewhat suboptimal study due to transabdominal imaging. 2. No gross abnormality is appreciated. Diagnostic code #2
--- NOTE | 2020-08-18 21:03 | EDM.PDOC ---
ED HPI GENERAL MEDICAL PROBLEM - General Chief Complaint: Gastrointestinal Problem Stated Complaint: NAUSEA Time Seen by Provider: 08/18/20 18:26 Source of Information: Reports: Patient, RN Notes Reviewed History Limitations: Reports: No Limitations - History of Present Illness INITIAL COMMENTS - FREE TEXT/NARRATIVE: Patient is a 19-year-old female presenting to the emergency department with complaints of nausea since May. She reports that she had her appendix removed around that time and has been having intermittent nausea since that time. She also reports occasional pelvic discomfort. She is concerned because she had a pelvic abscess earlier this year which was treated with antibiotics. She reports she did have a repeat ultrasound this had resolved. She has had no vomiting or diarrhea. Denies any fever or chills. Denies any abdominal pain at this time. She is scheduled to see general surgeon, Dr. Cassidy tomorrow. - Related Data Allergies Allergy/AdvReac Type Severity Reaction Status Date / Time No Known Allergies Allergy Verified 08/18/20 18:13 Home Meds: Home Meds Escitalopram [Lexapro] 10 mg PO BEDTIME 03/25/20 [History] Melatonin 10 mg PO BEDTIME 03/25/20 [History] Cetirizine HCl [Zyrtec] 10 mg PO BEDTIME 05/22/20 [History] Past Medical History HEENT History: Reports: Allergic Rhinitis Cardiovascular History: Reports: None Respiratory History: Reports: None Genitourinary History: Reports: Other (See Below) Other Genitourinary History: pelvic abscess Musculoskeletal History: Reports: None Psychiatric History: Reports: Anxiety, Depression Endocrine/Metabolic History: Reports: None Oncologic (Cancer) History: Reports: None - Past Surgical History HEENT Surgical History: Reports: Oral Surgery, Other (See Below) Other HEENT Surgeries/Procedures: [place] teeth removed 03/27 GI Surgical History: Reports: Appendectomy Other GI Surgeries/Procedures: 05/23/20 Social & Family History - Family History Family Medical History: No Pertinent Family History - Tobacco Use Tobacco Use Status *Q: Never Tobacco User Second Hand Smoke Exposure: No - Caffeine Use Caffeine Use: Reports: Coffee - Recreational Drug Use Recreational Drug Use: No - Living Situation & Occupation Living situation: Reports: with Family Occupation: Student (10th grade) ED ROS GENERAL - Review of Systems Review Of Systems: See Below Constitutional: Reports: No Symptoms. Denies: Fever, Chills HEENT: Reports: No Symptoms Respiratory: Reports: No Symptoms Cardiovascular: Reports: No Symptoms Endocrine: Reports: No Symptoms GI/Abdominal: Reports: Abdominal Pain (Occasional pelvic cramping), Decreased Appetite, Nausea. Denies: Diarrhea, Vomiting : Reports: No Symptoms Musculoskeletal: Reports: No Symptoms Skin: Reports: No Symptoms Neurological: Reports: No Symptoms Psychiatric: Reports: No Symptoms Hematologic/Lymphatic: Reports: No Symptoms Immunologic: Reports: No Symptoms ED EXAM, GI/ABD - Physical Exam Exam: See Below Exam Limited By: No Limitations General Appearance: Alert, WD/WN, No Apparent Distress Respiratory/Chest: No Respiratory Distress, Lungs Clear, Normal Breath Sounds, No Accessory Muscle Use, Chest Non-Tender Cardiovascular: Normal Peripheral Pulses, Regular Rate, Rhythm, No Edema, No Gallop, No JVD, No Murmur, No Rub GI/Abdominal Exam: Normal Bowel Sounds, Soft, Non-Tender, No Organomegaly, No Distention, No Abnormal Bruit, No Mass, Pelvis Stable Neurological: Alert, Oriented, CN II-XII Intact, Normal Cognition, Normal Gait, Normal Reflexes, No Motor/Sensory Deficits Psychiatric: Normal Affect, Normal Mood Course - Vital Signs Last Recorded V/S: Last Vital Signs Temp 97.8 F 08/18/20 18:09 Pulse 71 08/18/20 18:09 Resp 14 08/18/20 18:09 BP 121/77 08/18/20 18:09 Pulse Ox 100 08/18/20 18:09 - Orders/Labs/Meds Labs: Laboratory Tests 08/18/20 08/18/20 08/18/20 Range/Units 19:30 19:30 20:33 WBC 6.24 (3.98-10.04) K/mm3 RBC 4.47 (3.98-5.22) M/mm3 Hgb 12.5 (11.2-15.7) gm/dl Hct 37.1 (34.1-44.9) % MCV 83.0 (79.4-94.8) fl MCH 28.0 (25.6-32.2) pg MCHC 33.7 (32.2-35.5) g/dl RDW Std Deviation 41.7 (36.4-46.3) fL Plt Count 300 D (182-369) K/mm3 MPV 8.7 L (9.4-12.3) fl Neut % (Auto) 46.6 (34.0-71.1) % Lymph % (Auto) 38.3 (19.3-51.7) % [place] % (Auto) 10.1 (4.7-12.5) % Eos % (Auto) 3.8 (0.7-5.8) Baso % (Auto) 1.0 (0.1-1.2) % Neut # (Auto) 2.91 (1.56-6.13) K/mm3 Lymph # (Auto) 2.39 (1.18-3.74) K/mm3 [place] # (Auto) 0.63 H (0.24-0.36) K/mm3 Eos # (Auto) 0.24 (0.04-0.36) K/mm3 Baso # (Auto) 0.06 (0.01-0.08) K/mm3 Sodium 140 (136-145) mEq/L Potassium 4.4 (3.5-5.1) mEq/L Chloride 105 (98-107) mEq/L Carbon Dioxide 25 (21-32) mEq/L Anion Gap 14.4 (5-15) BUN 17 (7-18) mg/dL Creatinine 0.9 (0.55-1.02) mg/dL Est Cr Clr Drug Dosing 101.42 mL/min Estimated GFR (MDRD) > 60 (>60) mL/min BUN/Creatinine Ratio 18.9 H (14-18) Glucose 91 (70-99) mg/dL Calcium 8.8 (8.5-10.1) mg/dL Magnesium 2.0 (1.8-2.4) mg/dL Total Bilirubin 0.4 (0.2-1.0) mg/dL AST 16 (15-37) U/L ALT 18 (14-59) U/L Alkaline Phosphatase 52 (46-116) U/L C-Reactive Protein < 0.2 (<1.0) mg/dL Total Protein 7.0 (6.4-8.2) g/dl Albumin 3.5 (3.4-5.0) g/dl Globulin 3.5 gm/dL Albumin/Globulin Ratio 1.0 (1-2) Lipase 56 L (73-393) U/L Urine Color Yellow (Yellow) Urine Appearance Clear (Clear) Urine pH 5.5 (5.0-8.0) Ur Specific [place] > or = 1.030 (1.005-1.030) Urine Protein Negative (Negative) Urine Glucose (UA) Negative (Negative) Urine Ketones Negative (Negative) Urine Occult Blood 1+ H (Negative) Urine Nitrite Negative (Negative) Urine Bilirubin Negative (Negative) Urine Urobilinogen 0.2 (0.2-1.0) Ur Leukocyte Esterase Negative (Negative) Urine RBC 0-5 (0-5) /hpf Urine WBC 0-5 (0-5) /hpf Ur Squamous Epith Cells 0-5 (0-5) /hpf Urine Bacteria Few (FEW) /hpf Urine Mucus Moderate H (FEW) /hpf Urine HCG, Qual (NEGATIVE) 08/18/20 Range/Units 20:33 WBC (3.98-10.04) K/mm3 RBC (3.98-5.22) M/mm3 Hgb (11.2-15.7) gm/dl Hct (34.1-44.9) % MCV (79.4-94.8) fl MCH (25.6-32.2) pg MCHC (32.2-35.5) g/dl RDW Std Deviation (36.4-46.3) fL Plt Count (182-369) K/mm3 MPV (9.4-12.3) fl Neut % (Auto) (34.0-71.1) % Lymph % (Auto) (19.3-51.7) % [place] % (Auto) (4.7-12.5) % Eos % (Auto) (0.7-5.8) Baso % (Auto) (0.1-1.2) % Neut # (Auto) (1.56-6.13) K/mm3 Lymph # (Auto) (1.18-3.74) K/mm3 [place] # (Auto) (0.24-0.36) K/mm3 Eos # (Auto) (0.04-0.36) K/mm3 Baso # (Auto) (0.01-0.08) K/mm3 Sodium (136-145) mEq/L Potassium (3.5-5.1) mEq/L Chloride (98-107) mEq/L Carbon Dioxide (21-32) mEq/L Anion Gap (5-15) BUN (7-18) mg/dL Creatinine (0.55-1.02) mg/dL Est Cr Clr Drug Dosing mL/min Estimated GFR (MDRD) (>60) mL/min BUN/Creatinine Ratio (14-18) Glucose (70-99) mg/dL Calcium (8.5-10.1) mg/dL Magnesium (1.8-2.4) mg/dL Total Bilirubin (0.2-1.0) mg/dL AST (15-37) U/L ALT (14-59) U/L Alkaline Phosphatase (46-116) U/L C-Reactive Protein (<1.0) mg/dL Total Protein (6.4-8.2) g/dl Albumin (3.4-5.0) g/dl Globulin gm/dL Albumin/Globulin Ratio (1-2) Lipase (73-393) U/L Urine Color (Yellow) Urine Appearance (Clear) Urine pH (5.0-8.0) Ur Specific [place] (1.005-1.030) Urine Protein (Negative) Urine Glucose (UA) (Negative) Urine Ketones (Negative) Urine Occult Blood (Negative) Urine Nitrite (Negative) Urine Bilirubin (Negative) Urine Urobilinogen (0.2-1.0) Ur Leukocyte Esterase (Negative) Urine RBC (0-5) /hpf Urine WBC (0-5) /hpf Ur Squamous Epith Cells (0-5) /hpf Urine Bacteria (FEW) /hpf Urine Mucus (FEW) /hpf Urine HCG, Qual Negative (NEGATIVE) Meds: Medications Discontinued Medications Generic Name Dose Route Start Last Admin Trade Name Brendan PRN Reason Stop Dose Admin Sodium Chloride 1,000 mls @ 999 mls/hr 08/18/20 19:07 08/18/20 19:21 Normal Saline IV 08/18/20 20:07 999 mls/hr NOW STA Administration Sodium Chloride 10 ml 08/18/20 18:40 08/18/20 19:21 Sodium Chloride 0.9% 10 Ml Syringe FLUSH 10 ml ASDIRECTED PRN Administration Keep Vein Open - Re-Assessments/Exams Free Text/Narrative Re-Assessment/Exam: Patient is a 19-year-old female presenting to the emergency department with concerns of ongoing nausea for the last 3 to 4 months as well as occasional pelvic cramping. She is concerned she could have a pelvic abscess as she had one earlier. Exam is unremarkable. I ordered blood work, urinalysis, and a transabdominal pelvic ultrasound if she does not tolerate transvaginal ultrasounds well. 08/18/20 21:01 Hematology is grossly unremarkable. Urinalysis shows no signs of infection. Pelvic ultrasound is somewhat suboptimal due to transabdominal imaging but shows no gross abnormalities. Patient does have an appointment scheduled with general surgeon, Dr. Mckeon tomorrow. I would recommend that she keep this appointment for ongoing management of chronic nausea. Discharge instructions as documented. Departure - Departure Time of Disposition: 21:02 Disposition: Home, Self-Care 01 Condition: Good Clinical Impression: Nausea - Discharge Information *PRESCRIPTION DRUG MONITORING PROGRAM REVIEWED*: No *COPY OF PRESCRIPTION DRUG MONITORING REPORT IN PATIENT MALIK: No Instructions: Nausea, Adult Referrals: Cookie Butler PA-C [Primary Care Provider] - Xochitl Zaragoza MD [Physician] - Forms: ED Department Discharge Additional Instructions: You were seen in the emergency department today for evaluation with regards to recurrent nausea since May. Work-up included blood work, urinalysis, and a pelvic ultrasound. Results of your work-up were found to be normal. You did receive IV fluids while in the ER. Recommend that you keep your appointment as scheduled with Dr. Zaragoza tomorrow for ongoing management. Return to ER for any new or worsening symptoms. Sepsis Event Note (ED) - Evaluation Sepsis Screening Result: No Definite Risk
== END 2020-08-18 21:15 | disposition home or self-care (01) ==
LOC: JD.ED 17:56
DX: R11.0 Nausea (principal)
CPT/HCPCS: 36415; 76856; 80053; 81001; 81025; 83690; 83735; 85025; 86140; 99284; J7030; 99283

== ENCOUNTER 2021-05-26 11:00 | Emergency (ER) | payer BC | END 2021-05-26 15:15 | disposition home or self-care (01) | LOC: JD.ED 11:00 | DX: R10.32 Left lower quadrant pain (principal) | CPT/HCPCS: 36415; 76856; 76856-26; 80053; 81001; 84703; 85025; 99284; 99284-25 ==

== ENCOUNTER 2022-02-26 14:20 | Emergency (ER) | payer OTHER, BC | END 2022-02-26 18:30 | disposition home or self-care (01) | LOC: JD.ED 14:20 | DX: S63.502A Unspecified sprain of left wrist, initial encounter (principal); S50.02XA Contusion of left elbow, initial encounter; W00.0XXA Fall on same level due to ice and snow, initial encounter | CPT/HCPCS: 73080-26-LT; 73080-LT; 73110-26-LT; 73110-LT; 99283 ==

== ENCOUNTER 2023-06-17 16:34 | Emergency (ER) | payer BC ==
[2023-06-17] MEDS: Famotidine 20 MG/2 ML SDV IVPUSH ONE (17:09)
[2023-06-17] MEDS: Dexamethasone 4 MG/ML 5 ML MDV IV ONE (17:12)
[2023-06-17] MEDS: diphenhydrAMINE 50 MG/ML SDV IVPUSH ONE (17:13)
[2023-06-17] MEDS: Calamine/Zinc Oxide Lotion 177 ML Bottle TOP ONE (18:38)
== END 2023-06-17 18:12 | disposition home or self-care (01) ==
LOC: JD.ED 16:34
DX: T78.40XA Allergy, unspecified, initial encounter (principal); Z91.09 Other allergy status, other than to drugs and biological substances; Z79.899 Other long term (current) drug therapy
CPT/HCPCS: 96374; 96375; 99283; J1100; J1200; J3490

== ENCOUNTER 2024-08-17 13:11 | Emergency (ER) | payer BC ==
[2024-08-17 14:27] LABS: BASOPHILS ABSOLUTE AUTO 0.1 K/mm3 (0.0-0.2); BASOPHILS PERCENT AUTO 0.9 % (0.0-1.0); EOSINOPHILS ABSOLUTE AUTO 0.3 K/mm3 (0.0-0.4); EOSINOPHILS PERCENT AUTO 3.8 % (0.0-6.0); HEMATOCRIT 44.7 % (37.0-47.0); HEMOGLOBIN 15.3 gm/dl (12.0-16.0); IMMATURE GRAN ABSOLUTE AUTO 0.01 K/mm3 (0.00-0.05); IMMATURE GRAN PERCENT AUTO 0.1 % (0.0-0.4); LYMPHOCYTES ABSOLUTE AUTO 2.9 K/mm3 (1.0-4.8); LYMPHOCYTES PERCENT AUTO 37.4 % (24.0-44.0); MEAN CORPUSCULAR HEMOGLOBIN 29.1 pg (28.0-32.0); MEAN CORPUSCULAR HGB CONC 34.2 g/dl (32.0-36.0); MEAN CORPUSCULAR VOLUME 85.1 fl (83.0-99.0); MEAN PLATELET VOLUME 8.6 fl (9.4-12.3); MONOCYTES ABSOLUTE AUTO 0.6 K/mm3 (0.0-0.8); MONOCYTES PERCENT AUTO 7.3 % (0.0-8.0); NEUTROPHILS ABSOLUTE AUTO 3.9 K/mm3 (1.8-7.7); NEUTROPHILS PERCENT AUTO 50.5 % (41.0-71.0); PLATELET COUNT,PLT 272 K/mm3 (150-400); RED BLOOD CELL COUNT 5.25 M/mm3 (4.10-5.30); WHITE BLOOD CELL COUNT,WBC 7.71 K/mm3 (3.9-11.3)
[2024-08-17] MEDS: Ketorolac 30 MG/ML SDV IVPUSH ONE (14:27)
[2024-08-17] MEDS: Sodium Chloride 0.9% 10 ML Syringe FLUSH PRN (14:28)
[2024-08-17 14:58] LABS: A/G RATIO 1.1 (1-2); ANION GAP 14.1 (5-15); BILIRUBIN TOTAL 0.4 mg/dL (0.2-1.0); CALCIUM 9.2 mg/dL (8.5-10.1); CREATININE 0.9 mg/dL (0.55-1.02); EST CRCL DRUG DOSING (CG) 87.48 mL/min; POTASSIUM,K 4.1 mEq/L (3.5-5.1); PROTEIN TOTAL,TP 7.5 g/dl (6.4-8.2)
== END 2024-08-17 17:00 | disposition home or self-care (01) ==
LOC: JD.ED 13:11
DX: N83.202 Unspecified ovarian cyst, left side (principal); Z90.49 Acquired absence of other specified parts of digestive tract
CPT/HCPCS: 36415; 74176; 80053; 83690; 84703; 85025; 96374; 99284; J1885